=== PATIENT | female | born 1990 | race Two or more races ===

== ENCOUNTER 2021-12-15 17:55 | Emergency (ER) | payer SELFPAY ==
[~2021-12-15] VITALS: Ht 157.5 cm; Wt 86.2 kg
[2021-12-15 18:46] VITALS: BP 111/75
== END 2021-12-15 20:16 | disposition home or self-care (01) ==
LOC: ER 17:55
DX: M54.6 Pain in thoracic spine (principal); M54.2 Cervicalgia; M25.531 Pain in right wrist; V43.53XA Car driver injured in collision with pick-up truck in traffic accident, initial encounter; Y93.89 Activity, other specified; Y92.89 Other specified places as the place of occurrence of the external cause; Y99.8 Other external cause status
CPT/HCPCS: 71250; 72125

== ENCOUNTER 2024-02-19 20:22 | Emergency (ER) | payer BC, OTHER ==
[~2024-02-19] VITALS: Ht 157.5 cm; Wt 90.9 kg
[2024-02-19 20:50] VITALS: BP 113/70; PULSE 100; RESP 16; TEMP 97.9; O2SAT 100
[2024-02-19] MEDS: guaiFENesin-DM 100/10mg/5ml SYR PO ONE (21:40)
[2024-02-19] MEDS ORDERED: DEXT1SYP9 GT (21:47)
== END 2024-02-19 21:57 | disposition home or self-care (01) ==
LOC: ER 20:22
DX: J06.9 Acute upper respiratory infection, unspecified (principal)

== ENCOUNTER 2024-06-06 11:17 | Inpatient (IN) | payer BC, MEDICAID ==
[~2024-06-06] VITALS: Ht 157.5 cm; Wt 91.1 kg
[~2024-06-06 11:17] MED LIST: DEXT1SYP9 GT
[2024-06-06 12:25] LABS: Eosinophils # (auto) 0.2 10 ^3/uL (0-0.8); Hematocrit 25.9 % (36.0-46.0); Hemoglobin 7.6 g/dL (12.2-16.2); Monocytes # (auto) 0.5 10 ^3/uL (0-1.3); Nucleated Red Blood Cells % 0.1 %; Red Blood Cells 4.57 10^6/uL (4.0-5.20); White Blood Cell 6.1 10^3/uL (4.4-10.8)
[2024-06-06 12:27] LABS: Basophils # (auto) 0 10 ^3/uL (0-0.2); Basophils % (auto) 0.5 % (0.0-2.0); Lymphocytes # (auto) 1.5 10 ^3/uL (0.4-5.4); Lymphocytes % (auto) 24.6 % (10.0-50.0); Mean Corpuscular Hemoglobin 16.7 pg (28.0-32.0); Mean Corpuscular Hgb Conc. 29.4 g/dL (32.0-36.0); Mean Corpuscular Volume 56.8 fL (80.0-100.0); Monocytes % (auto) 7.7 % (0.0-12.0); Neutrophils # (auto) 3.9 10 ^3/uL (1.6-8.6); Neutrophils % (auto) 64.2 % (37.0-80.0); Platelet Count (auto) 294 10^3/uL (140-450); Red Cell Distribution Width 18.8 % (11.8-14.3)
[2024-06-06 12:37] LABS: Chloride 111 mmol/L (98-107); Potassium 3.9 mmol/L (3.5-5.1); Sodium 140 mmol/L (136-145)
[2024-06-06 12:38] LABS: Anion Gap 6 (5-15); Calcium 9.1 mg/dL (8.7-10.4); Carbon Dioxide 23 mmol/L (20-30)
[2024-06-06 12:43] LABS: BUN/Creatinine Ratio 14.5 (10.0-20.0); Blood Urea Nitrogen 12 mg/dL (9-23); Glucose 125 mg/dL (74-106)
[2024-06-06 12:57] LABS: INR 1.02 (0.9-1.15); Prothrombin Time 10.8 sec (9.3-11.8)
[2024-06-06 13:36] LABS: Platelet Estimate Adequate
[2024-06-06 13:38] LABS: Hypochromia Marked; Ovalocytes MANY
[2024-06-06] MEDS ORDERED: HYDROcodone-ACET 5/325MG TAB PO PRN (15:30)
[2024-06-06] MEDS ORDERED: ONDANSETRON HCL 4 MG/2 ML VIAL IV PRN (15:30)
[2024-06-06] MEDS ORDERED: DOCUSATE SOD 100 MG CAP PO PRN (15:30)
[2024-06-06] MEDS ORDERED: ACETAMINOPHEN 325 MG TAB PO PRN (15:30)
[2024-06-06 15:46] LABS: Urine Bacteria None Seen /hpf (None Seen)
[2024-06-06] MEDS ORDERED: MORPHINE SULFATE INJ 2 MG/ml SYRG IV PRN (16:00)
[2024-06-06] MEDS ORDERED: NITROGLYCERIN 0.4 MG SL TAB SL PRN (16:00)
[2024-06-06 16:10] LABS: Urine Amorphous Crystal FEW /hpf (None Seen); Urine Blood Negative /uL (Negative); Urine Clarity Turbid (Clear); Urine Color Light-Yellow (Yellow); Urine Protein, UAD Negative (Negative); Urine Specific Gravity 1.023 (1.001-1.035); Urine Urobilinogen Normal (Negative); Urine WBC 1 /hpf (0 - 5); Urine pH 7.5 (5.0-9.0)
[2024-06-06 21:22] VITALS: PULSE 87; RESP 16; O2SAT 100
[2024-06-06 22:00] VITALS: BP 99/59; PULSE 98; RESP 17; TEMP 98.3; O2SAT 99
[2024-06-06] MEDS ORDERED: CALC500C3 PO (23:11)
[2024-06-07 05:00] VITALS: BP 100/58; PULSE 102; RESP 17; TEMP 98.1; O2SAT 99
[2024-06-07 07:04] LABS: Basophils # (auto) 0 10 ^3/uL (0-0.2); Basophils % (auto) 0.5 % (0.0-2.0); Hematocrit 23.6 % (36.0-46.0); Mean Corpuscular Hemoglobin 16.8 pg (28.0-32.0); Neutrophils # (auto) 4.5 10 ^3/uL (1.6-8.6); Nucleated Red Blood Cells % 0.1 %; Red Blood Cells 4.15 10^6/uL (4.0-5.20); White Blood Cell 7.4 10^3/uL (4.4-10.8)
[2024-06-07 07:06] LABS: Eosinophils # (auto) 0.3 10 ^3/uL (0-0.8); Eosinophils % (auto) 3.5 % (0.0-7.0); Lymphocytes % (auto) 27.4 % (10.0-50.0); Mean Corpuscular Hgb Conc. 29.4 g/dL (32.0-36.0); Mean Corpuscular Volume 56.9 fL (80.0-100.0); Monocytes # (auto) 0.6 10 ^3/uL (0-1.3); Neutrophils % (auto) 60.6 % (37.0-80.0); Platelet Count (auto) 264 10^3/uL (140-450); Red Cell Distribution Width 18.7 % (11.8-14.3)
[2024-06-07 07:32] LABS: Alanine Aminotransferase 59 U/L (7-40); Albumin 3.4 g/dL (3.2-4.8); Alkaline Phosphatase 121 U/L (46-116); Anion Gap 6 (5-15); Aspartate Aminotransferase 34 U/L (13-40); BUN/Creatinine Ratio 21.2 (10.0-20.0); Bilirubin, Total 0.4 mg/dL (0.2-1.0); Blood Urea Nitrogen 14 mg/dL (9-23); Calcium 8.7 mg/dL (8.7-10.4); Carbon Dioxide 20 mmol/L (20-30); Chloride 112 mmol/L (98-107); Glucose 100 mg/dL (74-106); Potassium 4.1 mmol/L (3.5-5.1); Sodium 138 mmol/L (136-145)
[2024-06-07 07:33] LABS: Total Protein 5.9 g/dL (5.7-8.2)
[2024-06-07 07:45] LABS: Hypochromia Moderate; Platelet Estimate Adequate
[2024-06-07 07:46] LABS: Ovalocytes FEW; Stomatocytes Few
[2024-06-07 08:47] LABS: Triglycerides 73 mg/dL (< 150)
[2024-06-07 08:48] LABS: LDL Cholesterol 85 mg/dL (< 100)
[2024-06-07 08:49] LABS: Cholesterol 133 mg/dL (< 200); HDL Cholesterol 39 mg/dL (40-59)
[2024-06-07 09:00] VITALS: BP 100/59; PULSE 86; RESP 24; TEMP 98.5; O2SAT 99
[2024-06-07] MEDS: PANTOPRAZOLE 40 MG TAB PO ONE (12:33)
[2024-06-07 13:00] VITALS: BP_SYST 119; BP_SYST 81; BP_DIAS 34; BP_DIAS 67; PULSE 117; PULSE 75; RESP 18; RESP 24; TEMP 97.7; TEMP 98.1; O2SAT 98
[2024-06-07 13:14] LABS: Amphetamine Screen, Urine Neg (NEGATIVE); Barbiturate Scree,Urine Neg (NEGATIVE); Benzodiazephine Screen, Urine Neg (NEGATIVE)
[2024-06-07 13:15] LABS: Cannabinoid Screen, Urine Neg (NEGATIVE); Cocaine Screen, Urine Neg (NEGATIVE); Opiate Scree,Urine Neg (NEGATIVE); Phencyclidine Screen, Urine Neg (NEGATIVE)
[2024-06-07 13:23] LABS: Hematocrit 29.1 % (36.0-46.0); Hemoglobin 8.3 g/dL (12.2-16.2)
[2024-06-07 13:42] LABS: % Iron Saturation 5.6 % (15-50)
[2024-06-07] MEDS: PANTOPRAZOLE 40 MG/10 ML VIAL INJ IV ONE (14:00)
[2024-06-07 17:00] VITALS: BP 114/63; PULSE 106; RESP 20; TEMP 98.7; O2SAT 98
[2024-06-07 20:00] VITALS: PULSE 100
[2024-06-07 21:00] VITALS: BP 99/62; PULSE 96; RESP 18; TEMP 98.4; O2SAT 100
[2024-06-07 22:04] LABS: Basophils # (auto) 0 10 ^3/uL (0-0.2); Basophils % (auto) 0.4 % (0.0-2.0); Eosinophils # (auto) 0.2 10 ^3/uL (0-0.8); Eosinophils % (auto) 2.1 % (0.0-7.0); Hematocrit 25.5 % (36.0-46.0); Hemoglobin 7.3 g/dL (12.2-16.2); Lymphocytes # (auto) 3.2 10 ^3/uL (0.4-5.4); Lymphocytes % (auto) 31.7 % (10.0-50.0); Mean Corpuscular Hemoglobin 16.6 pg (28.0-32.0); Mean Corpuscular Hgb Conc. 28.5 g/dL (32.0-36.0); Mean Corpuscular Volume 58.2 fL (80.0-100.0); Monocytes # (auto) 0.7 10 ^3/uL (0-1.3); Monocytes % (auto) 7.4 % (0.0-12.0); Neutrophils # (auto) 5.9 10 ^3/uL (1.6-8.6); Neutrophils % (auto) 58.4 % (37.0-80.0); Nucleated Red Blood Cells % 0.1 %; Platelet Count (auto) 309 10^3/uL (140-450); Red Blood Cells 4.38 10^6/uL (4.0-5.20); Red Cell Distribution Width 18.8 % (11.8-14.3); White Blood Cell 10.1 10^3/uL (4.4-10.8)
[2024-06-08] VITALS (10 sets, daily range): BP systolic 92–111; BP diastolic 49–65; PULSE 71–100; RESP 15–18; TEMP 98.1–98.5; O2SAT 92–100
[2024-06-08] MEDS: SUCRALFATE 1 GM/10 ML ORAL SUSP PO SCH (05:44)
[2024-06-08] MEDS ORDERED: PANTOPRAZOLE 40 MG TAB PO SCH (06:00)
[2024-06-08 07:22] LABS: Basophils # (auto) 0 10 ^3/uL (0-0.2); Basophils % (auto) 0.5 % (0.0-2.0); Eosinophils # (auto) 0.3 10 ^3/uL (0-0.8); Eosinophils % (auto) 3.5 % (0.0-7.0); Hematocrit 22.4 % (36.0-46.0); Lymphocytes # (auto) 2.6 10 ^3/uL (0.4-5.4); Lymphocytes % (auto) 34.1 % (10.0-50.0); Mean Corpuscular Hgb Conc. 29.6 g/dL (32.0-36.0); Mean Corpuscular Volume 57.3 fL (80.0-100.0); Monocytes # (auto) 0.6 10 ^3/uL (0-1.3); Monocytes % (auto) 8.3 % (0.0-12.0); Neutrophils # (auto) 4.1 10 ^3/uL (1.6-8.6); Neutrophils % (auto) 53.6 % (37.0-80.0); Nucleated Red Blood Cells % 0.1 %; Platelet Count (auto) 259 10^3/uL (140-450); Red Blood Cells 3.91 10^6/uL (4.0-5.20); Red Cell Distribution Width 18.5 % (11.8-14.3); White Blood Cell 7.6 10^3/uL (4.4-10.8)
[2024-06-08 07:27] LABS: Hemoglobin 6.6 g/dL (12.2-16.2)
[2024-06-08 08:30] LABS: Hypochromia Moderate; Platelet Estimate Adequate
[2024-06-08 08:31] LABS: Ovalocytes FEW
[2024-06-08] MEDS ORDERED: PANT40TA2 PO (16:47)
[2024-06-08] MEDS ORDERED: FER325T PO (16:47)
[2024-06-08] MEDS: PANTOPRAZOLE 40 MG/10 ML VIAL INJ IV SCH (17:11)
[2024-06-08 18:18] LABS: Basophils # (auto) 0 10 ^3/uL (0-0.2); Eosinophils # (auto) 0.2 10 ^3/uL (0-0.8); Eosinophils % (auto) 2.5 % (0.0-7.0); Hemoglobin 9.5 g/dL (12.2-16.2); Lymphocytes # (auto) 2.3 10 ^3/uL (0.4-5.4); Mean Corpuscular Hemoglobin 18.5 pg (28.0-32.0); Monocytes # (auto) 0.6 10 ^3/uL (0-1.3)
[2024-06-08 18:20] LABS: Basophils % (auto) 0.5 % (0.0-2.0); Hematocrit 32.3 % (36.0-46.0); Lymphocytes % (auto) 26.6 % (10.0-50.0); Mean Corpuscular Hgb Conc. 29.4 g/dL (32.0-36.0); Monocytes % (auto) 7.1 % (0.0-12.0); Neutrophils # (auto) 5.4 10 ^3/uL (1.6-8.6); Neutrophils % (auto) 63.3 % (37.0-80.0); Nucleated Red Blood Cells % 0.2 %; Platelet Count (auto) 267 10^3/uL (140-450); Red Blood Cells 5.13 10^6/uL (4.0-5.20); White Blood Cell 8.6 10^3/uL (4.4-10.8)
[2024-06-08 18:21] LABS: Red Cell Distribution Width 23.3 % (11.8-14.3)
== END 2024-06-08 19:02 | disposition home or self-care (01) | DRG 812 ==
LOC: ER 11:17 → TELE 15:58 → TELE-WESTW 22:05
PROVIDERS: ADMIT Internal Medicine Geriatric Medicine; ATTEND Internal Medicine Geriatric Medicine
PROC: 30233N1 Transfusion of Nonautologous Red Blood Cells into Peripheral Vein, Percutaneous Approach (ICD-10-PCS; principal; 2024-06-08)
DX: D50.9 Iron deficiency anemia, unspecified (principal); R13.10 Dysphagia, unspecified; K44.9 Diaphragmatic hernia without obstruction or gangrene; K57.30 Diverticulosis of large intestine without perforation or abscess without bleeding; K80.20 Calculus of gallbladder without cholecystitis without obstruction; E66.01 Morbid (severe) obesity due to excess calories; Z68.36 Body mass index [BMI] 36.0-36.9, adult; Z79.899 Other long term (current) drug therapy
CPT/HCPCS: 36415; 71250; 74176; 76705; 80048; 80053; 80061; 80307; 81001; 81025; 82270; 82306; 82607; 82746; 82962; 83036; 83540; 83550; 83735; 84443; 85014; 85018; 85025; 85610; 86850; 86900; 86901; 86920; G0378; J2470

== ENCOUNTER 2024-09-03 20:13 | Emergency (ER) | payer BC, MEDICAID ==
[~2024-09-03] VITALS: Ht 157.5 cm; Wt 86.5 kg
[~2024-09-03 20:13] MED LIST changes: +CALC500C3 PO; +FER325T PO; +PANT40TA2 PO
--- NOTE | 2024-09-03 21:16 | DVH ---
EXAM: XY CHEST TWO VIEWS ROUTINE CLINICAL HISTORY: cough sob TECHNIQUE: Frontal and lateral views of the chest WID: COMPARISON: None FINDINGS: Lines and tubes: None Chest: The heart size and pulmonary vasculature is within normal limits. No pleural effusion, pneumothorax, or consolidation. The osseous structures are grossly intact. Small hiatal hernia. IMPRESSION: 1. No acute cardiopulmonary abnormality. 2. Small hiatal hernia.
[2024-09-03] MEDS ORDERED: AZIT-43 PO (23:41)
[2024-09-03] MEDS ORDERED: METH4PAK PO (23:41)
--- NOTE | 2024-09-03 23:42 | ED.PDOC ---
SOB-HPI HPI Comments 34 year old female patient presents to the ED chief complaint cough x5 days. Patient reports subjective fevers at home, productive cough yellow mucus. She reports no other related symptoms. Denies chest pain, shortness of breath, or difficulty breathing. Chief Complaint: Cough Time Seen by MD: 20:51 Primary Care Provider: NONE Reviewed notes: Nurses Notes, Medications, Allergies Information Source: Patient Mode of Arrival: Ambulatory Past Medical History PAST MEDICAL HISTORY: Anemia Surgical History: Denies all surgeries PARACHUTE MENDER History: Denies all PARACHUTE MENDER Hx Family History Family History: Reviewed,noncontributory to illness Social History Smoker: Non-Smoker Alcohol: Denies ETOH Use Drugs: Denies Drug Use Lives In: Home Constitutional: reports: fever; denies: chills, diaphoresis, fatigue, malaise, sweats, weakness, others EENTM: denies: blurred vision, double vision, ear bleeding, ear discharge, ear drainage, ear pain, ear ringing, eye pain, eye redness, hearing loss, mouth pain, mouth swelling, nasal discharge, nose bleeding, nose congestion, nose pain, photophobia, tearing, throat pain, throat swelling, voice changes, others Respiratory: reports: cough; denies: hemoptysis, orthopnea, SOB at rest, shortness of breath, SOB with excertion, stridor, wheezing, others Cardiovascular: denies: chest pain, dizzy spells, diaphoresis, Dyspnea on exertion, edema, irregular heart beat, left arm pain, lightheadedness, palpitations, PND, syncope, others Gastrointestinal: denies: abdomen distended, abdominal pain, blood streaked bowels, constipated, diarrhea, dysphagia, difficulty swallowing, hematemesis, melena, nausea, poor appetite, poor fluid intake, rectal bleeding, rectal pain, vomiting, others Genitourinary: denies: abnormal vagina bleeding, burning, dyspareunia, dysuria, flank pain, frequency, hematuria, incontinence, pain, , vagina discharge, urgency, others Neurological: denies: dizziness, fainting, headache, left sided numbness, left sided weakness, numbness, paresthesia, pre-existing deficit, right sided numbness, right sided weakness, seizure, speech problems, tingling, tremors, weakness, others Musculoskeletal: denies: back pain, gout, joint pain, joint swelling, muscle pain, muscle stiffness, neck pain, others Integumetry: denies: bruises, change in color, change in hair/nails, dryness, laceration, lesions, lumps, rash, wounds, others Allergic/Immunocompromised: denies: Difficulty Healing, Frequent Infections, Hives, Itching, others Hematologic/Lymphatic: denies: anemia, blood clots, easy bleeding, easy bruising, swollen glands, others Endocrine: denies: excessive hunger, excessive sweating, excessive thirst, excessive urination, flushing, intolerance to cold, intolerance to heat, unexplained weight gain, unexplained weight loss, others Psychiatric: denies: anxiety, bipolar disorder, depression, hopeless, panic disorder, schizophrenia, sleepless, suicidal, others Physical Exam General Appearance: No Apparent Distress, Normal HEENT: Normal ENT Inspection, Pharynx Normal, TMs Normal Neck: Full Range of Motion, Non-Tender Respiratory: Chest Non-Tender, Expiration, No Accessory Muscle Use, No Respiratory Distress, Rhonchi Cardiovascular: No Murmur, Normal Peripheral Pulses, Regular Rate/Rhythm Breast Exam: Deferred Gastrointestinal: Non Tender, Soft Genitalia: Deferred Pelvic: Deferred Rectal: Deferred Extremities: No calf tenderness, Normal range of motion Musculoskeletal : Apperance: Normal Neurologic: Alert, granulator operator II-XII nml as Tested, No Motor Deficits, Normal Affect, Normal Mood, No Sensory Deficits Cerebellar Function: Normal Reflexes: Normal Skin: Dry, Normal Color, Warm Lymphatic: No Adenopathy Was a procedure done? Was a procedure done?: No Differential Dx Differential Diagnosis: Pneumonia X-Ray, Labs, Meds, VS Vital Signs Date Time Temp Pulse Resp B/P (MAP) Pulse Ox O2 Delivery O2 Flow Rate FiO2 09/03/24 20:24 98.1 100 16 128/69 (88) 100 X-Ray, Labs, Meds, VS Comment Chest x-ray shows no acute cardiopulmonary findings. We will prescribing hold azithromycin advised to start in 2 days if no improvement. We will also send Tessalon Perles for the cough. Advised to rest increase p.o. fluids with electrolytes. Advised to follow up with her PCP in 2- 3 days for continued symptoms. ED return precautions given. Patient agrees with discharge plan and clear. Time of 1ST Reevaluation: 23:39 Reevaluation 1ST: Unchanged Patient Education/Counseling: Diagnosis, Treatment, Prognosis, Need For Follow Up Family Education/Counseling: No Family Present Departure 1 Departure Time of Disposition: 23:41 Impression: Primary Impression: Cough in adult patient Disposition: 01 HOME / SELF CARE / HOMELESS Condition: Stable e-Prescriptions Methylprednisolone (Medrol Dosepak) 4 Mg Osito 4 MG PO UD for 6 Days, #21 TAB UAD Prov: LUCY BOURGEOIS [facility] 09/03/24 Azithromycin (Azithromycin) 250 Mg Tab 250 MG PO DAILY MDD 500 for 5 Days, #6 TAB 0 Refills 2 TABLETS ORALLY ON DAY ONE, THEN 1 TABLET ORALLY DAILY FOR 4 DAYS Prov: LUCY BOURGEOIS [facility] 09/03/24 Discharged With: Self Critical Care Note Critical Care Time?: No Stability Stability form required: No Heart Score Heart Score: Heart Score Response (Comments) Value History N/A 0 EKG N/A 0 Age <45 0 Risk Factors N/A 0 Troponin N/A 0 Total 0 LUCY BOURGEOIS [facility] Sep 03, 2024 23:42
[2024-09-04 00:13] VITALS: BP 100/62; PULSE 91; RESP 16; TEMP 98.8; O2SAT 99
== END 2024-09-04 00:15 | disposition home or self-care (01) ==
LOC: ER 20:13
DX: R05.9 Cough, unspecified (principal); R50.9 Fever, unspecified; D64.9 Anemia, unspecified
CPT/HCPCS: 71046

== ENCOUNTER 2025-01-01 03:12 | Inpatient (IN) | payer BC, MEDICAID ==
[2025-01-01] VITALS (12 sets, daily range): BP systolic 91–111; BP diastolic 55–75; PULSE 72–92; RESP 12–18; TEMP 97.1–98.4; O2SAT 95–100
[~2025-01-01] VITALS: Ht 157.5 cm; Wt 86.1 kg
[~2025-01-01 03:12] MED LIST changes: +AZIT-43 PO; +METH4PAK PO
--- NOTE | 2025-01-01 03:39 | ED.PDOC ---
History of Present Illness HPI Comments Pt presents to ED d/t dizziness. Pt states she awoke at 0205, and felt dizzy. Admits to N/V denies diarrhea. PMH of anemia, blood transfusion comleted six months ago. BP 113/66, HR 99. Pt A&O x4 patient denies difficulty breathing, chest pain, shortness of breath, or heavy menses. Chief Complaint: Dizziness Time Seen by MD: 03:20 Primary Care Provider: NONE Reviewed Notes: Nurses Notes, Medications, Allergies Allergies: Coded Allergies: NO KNOWN ALLERGIES (Unverified , 02/19/24) Home Meds Active Scripts Methylprednisolone (Medrol Dosepak) 4 Mg Osito, 4 MG PO UD for 6 Days, #21 TAB UAD Prov:LUCY BOURGEOIS [facility] 09/03/24 Azithromycin (Azithromycin) 250 Mg Tab, 250 MG PO DAILY MDD 500 for 5 Days, #6 TAB 0 Refills 2 TABLETS ORALLY ON DAY ONE, THEN 1 TABLET ORALLY DAILY FOR 4 DAYS Prov:LUCY BOURGEOIS [facility] 09/03/24 Pantoprazole Sodium Sesquihydr (Protonix) 40 Mg Tab, 40 MG PO DAILY for 30 Days, #30 TAB 3 Refills Prov:VARGAS SALCEDO RESIDENT 06/08/24 Ferrous Sulfate (FERROUS SULFATE) 325 Mg Tb, 325 MG PO DAILY for 30 Days, #30 TAB 3 Refills Prov:VARGAS SALCEDO RESIDENT 06/08/24 Dextromethorphan-Guaifenesin (Robitussin-Dm) 10 Ml Sr, 20 ML GT Q4HPRN PRN, #120 ML Prov:MACIE LAWRENCE PAC 02/19/24 Reported Medications Calcium Carbonate (Tums) 500 Mg Chw, 500 MG PO PRN, TAB.CHEW 06/06/24 Information Source: Patient Mode of Arrival: Ambulatory Past Medical History PAST MEDICAL HISTORY: Anemia Surgical History: Denies all surgeries MEDICAL RECEPTIONIST History: Denies all MEDICAL RECEPTIONIST Hx Family History Family History: Reviewed,noncontributory to illness Social History Smoker: Non-Smoker Alcohol: Denies ETOH Use Drugs: Denies Drug Use Lives In: Home Constitutional: denies: chills, diaphoresis, fatigue, fever, malaise, sweats, weakness, others EENTM: denies: blurred vision, double vision, ear bleeding, ear discharge, ear drainage, ear pain, ear ringing, eye pain, eye redness, hearing loss, mouth pain, mouth swelling, nasal discharge, nose bleeding, nose congestion, nose pain, photophobia, tearing, throat pain, throat swelling, voice changes, others Respiratory: denies: cough, hemoptysis, orthopnea, SOB at rest, shortness of breath, SOB with excertion, stridor, wheezing, others Cardiovascular: reports: dizzy spells; denies: chest pain, diaphoresis, Dyspnea on exertion, edema, irregular heart beat, left arm pain, lightheadedness, palpitations, PND, syncope, others Gastrointestinal: reports: nausea, vomiting; denies: abdomen distended, abdominal pain, blood streaked bowels, constipated, diarrhea, dysphagia, difficulty swallowing, hematemesis, melena, poor appetite, poor fluid intake, rectal bleeding, rectal pain, others Genitourinary: denies: abnormal vagina bleeding, burning, dyspareunia, dysuria, flank pain, frequency, hematuria, incontinence, pain, , vagina discharge, urgency, others Neurological: denies: dizziness, fainting, headache, left sided numbness, left sided weakness, numbness, paresthesia, pre-existing deficit, right sided numbness, right sided weakness, seizure, speech problems, tingling, tremors, weakness, others Musculoskeletal: denies: back pain, gout, joint pain, joint swelling, muscle pain, muscle stiffness, neck pain, others Integumetry: denies: bruises, change in color, change in hair/nails, dryness, laceration, lesions, lumps, rash, wounds, others Allergic/Immunocompromised: denies: Difficulty Healing, Frequent Infections, Hives, Itching, others Hematologic/Lymphatic: denies: anemia, blood clots, easy bleeding, easy bruising, swollen glands, others Endocrine: denies: excessive hunger, excessive sweating, excessive thirst, excessive urination, flushing, intolerance to cold, intolerance to heat, unexplained weight gain, unexplained weight loss, others Psychiatric: denies: anxiety, bipolar disorder, depression, hopeless, panic disorder, schizophrenia, sleepless, suicidal, others Physical Exam General Appearance: No Apparent Distress, Normal HEENT: Normal ENT Inspection, Pharynx Normal, TMs Normal Neck: Full Range of Motion, Non-Tender Respiratory: Lungs Clear, No Accessory Muscle Use, No Respiratory Distress, Normal Breath Sounds Cardiovascular: No Edema, No JVD, No Murmur, No Gallop, Normal Peripheral Pulses, Regular Rate/Rhythm Breast Exam: Deferred Gastrointestinal: No Organomegaly, Non Tender, No Pulsatile Mass, Normal Bowel Sounds, Soft Genitalia: Deferred Pelvic: Deferred Rectal: Deferred Extremities: Normal capillary refill, Normal inspection, Normal range of motion, Non-tender, No pedal edema Musculoskeletal : Apperance: Normal Neurologic: Alert, ecological technical officer II-XII nml as Tested, No Motor Deficits, Normal Affect, Normal Mood, No Sensory Deficits Cerebellar Function: Normal Reflexes: Normal Skin: Dry, Pallor, Warm Lymphatic: No Adenopathy Was a procedure done? Was a procedure done?: No Differential Dx Considerations may include: Anemia X-Ray, Labs, Meds, VS Vital Signs Date Time Temp Pulse Resp B/P (MAP) Pulse Ox O2 Delivery O2 Flow Rate FiO2 01/01/25 05:03 98.0 91 12 105/57 (73) 95 98.0 01/01/25 05:03 91 12 95 Room Air* 0 21 01/01/25 03:16 98.5 99 16 113/66 (82) 100 98.5 Lab Test 01/01/25 03:48 Range/Units White Blood Count 5.6 4.4-10.8 10^3/uL Red Blood Count 3.58 L 4.0-5.20 10^6/uL Hemoglobin 5.7 *L 12.2-16.2 g/dL Hematocrit 20.1 L 36.0-46.0 % Mean Corpuscular Volume 56.0 L 80.0-100.0 fL Mean Corpuscular Hemoglobin 15.9 L 28.0-32.0 pg Mean Corpuscular Hemoglobin Concent 28.3 L 32.0-36.0 g/dL Red Cell Distribution Width 19.5 H 11.8-14.3 % Platelet Count 274 140-450 10^3/uL Mean Platelet Volume 8.5 6.9-10.8 fL Neutrophils (%) (Auto) 59.0 37.0-80.0 % Lymphocytes (%) (Auto) 29.2 10.0-50.0 % Monocytes (%) (Auto) 7.6 0.0-12.0 % Eosinophils (%) (Auto) 3.6 0.0-7.0 % Basophils (%) (Auto) 0.6 0.0-2.0 % Neutrophils # (Auto) 3.3 1.6-8.6 10 ^3/uL Lymphocytes # (Auto) 1.6 0.4-5.4 10 ^3/uL Monocytes # (Auto) 0.4 0-1.3 10 ^3/uL Eosinophils # (Auto) 0.2 0-0.8 10 ^3/uL Basophils # (Auto) 0 0-0.2 10 ^3/uL Nucleated Red Blood Cells 0.1 % Sodium Level 143 136-145 mmol/L Potassium Level 3.6 3.5-5.1 mmol/L Chloride Level 112 H 98-107 mmol/L Carbon Dioxide Level 24 20-31 mmol/L Anion Gap 7 5-15 Blood Urea Nitrogen 13 9-23 mg/dL Creatinine 0.74 0.550-1.02 mg/dL Glomerular Filtration Rate Calc 109 >90 mL/min BUN/Creatinine Ratio 17.6 10.0-20.0 Serum Glucose 116 H 74-106 mg/dL Calcium Level 8.6 L 8.7-10.4 mg/dL Iron Level 12 L 50-170 ug/dL Total Iron Binding Capacity 404 250-425 ug/dL Percent Iron Saturation 3.0 L 15-50 % Total Bilirubin 0.3 0.2-1.0 mg/dL Aspartate Amino Transferase (AST) 26 13-40 U/L Alanine Aminotransferase (ALT) 31 7-40 U/L Alkaline Phosphatase 109 46-116 U/L Total Protein 6.1 5.7-8.2 g/dL Albumin 3.8 3.2-4.8 g/dL X-Ray, Labs, Meds, VS Comment Patient will be admitted for anemia requiring blood transfusion. PENDING TYPE AND SCREEN, ORDERS PLACED FOR PACKED RED BLOOD CELLS X2. Patient placed for hospitalist. LABS: HEMOGLOBIN 5.7 HEMATOCRIT 20.1 IRON 12 MCV 56 MCH 15.9 MCHC 28.3 RDW 19.5 Time of 1ST Reevaluation: 04:45 Reevaluation 1ST: Unchanged Patient Education/Counseling: Diagnosis, Treatment, Prognosis, Need For Follow Up Family Education/Counseling: No Family Present Departure 1 Departure Time of Disposition: 04:48 Impression: Primary Impression: Symptomatic anemia Disposition: 04 INTERMEDIATE CARE FACILITY Condition: Stable Discharged With: Self Critical Care Note Critical Care Time?: No Stability Stability form required: LUCY Pollack Jan 01, 2025 03:39
[2025-01-01 04:23] LABS: Basophils # (auto) 0 10 ^3/uL (0-0.2); Eosinophils # (auto) 0.2 10 ^3/uL (0-0.8); Hematocrit 20.1 % (36.0-46.0); Lymphocytes # (auto) 1.6 10 ^3/uL (0.4-5.4); Lymphocytes % (auto) 29.2 % (10.0-50.0); Mean Corpuscular Hemoglobin 15.9 pg (28.0-32.0); Monocytes # (auto) 0.4 10 ^3/uL (0-1.3); Neutrophils # (auto) 3.3 10 ^3/uL (1.6-8.6); Nucleated Red Blood Cells % 0.1 %; Red Cell Distribution Width 19.5 % (11.8-14.3)
[2025-01-01 04:25] LABS: Basophils % (auto) 0.6 % (0.0-2.0); Eosinophils % (auto) 3.6 % (0.0-7.0); Mean Corpuscular Hgb Conc. 28.3 g/dL (32.0-36.0); Monocytes % (auto) 7.6 % (0.0-12.0); Platelet Count (auto) 274 10^3/uL (140-450); Red Blood Cells 3.58 10^6/uL (4.0-5.20); White Blood Cell 5.6 10^3/uL (4.4-10.8)
[2025-01-01 04:37] LABS: Hemoglobin 5.7 g/dL (12.2-16.2)
[2025-01-01 04:38] LABS: Alanine Aminotransferase 31 U/L (7-40); Alkaline Phosphatase 109 U/L (46-116); Aspartate Aminotransferase 26 U/L (13-40); BUN/Creatinine Ratio 17.6 (10.0-20.0); Blood Urea Nitrogen 13 mg/dL (9-23); Carbon Dioxide 24 mmol/L (20-31); Total Protein 6.1 g/dL (5.7-8.2)
[2025-01-01 04:39] LABS: Albumin 3.8 g/dL (3.2-4.8); Bilirubin, Total 0.3 mg/dL (0.2-1.0)
[2025-01-01 04:42] LABS: Potassium 3.6 mmol/L (3.5-5.1); Sodium 143 mmol/L (136-145)
[2025-01-01 04:46] LABS: Chloride 112 mmol/L (98-107)
[2025-01-01 04:47] LABS: Calcium 8.6 mg/dL (8.7-10.4); Glucose 116 mg/dL (74-106)
[2025-01-01 04:49] LABS: Anion Gap 7 (5-15)
[2025-01-01] MEDS ORDERED: ACETAMINOPHEN 325 MG TAB PO PRN (05:30)
[2025-01-01] MEDS ORDERED: HYDROcodone-ACET 5/325MG TAB PO PRN (05:30)
--- NOTE | 2025-01-01 06:08 | DVH ---
EXAM: XR Chest, 1 View CLINICAL INDICATION: anemia TECHNIQUE: Frontal view of the chest. COMPARISON: None FINDINGS: LUNGS AND PLEURAL SPACES: Unremarkable. No consolidation. No pneumothorax. HEART: Unremarkable. No cardiomegaly. MEDIASTINUM: Unremarkable. Normal mediastinal contour. BONES/JOINTS: Unremarkable. No acute fracture. OTHER FINDINGS: . None. IMPRESSION: No acute cardiopulmonary process.
[2025-01-01 06:25] LABS: INR 0.97 (0.9-1.15); Partial Thromboplastin Time 24.8 SEC (24.5-34.5); Prothrombin Time 10.3 sec (9.3-11.8)
--- NOTE | 2025-01-01 06:36 | DVHHPRES ---
History of Present Illness Resident Creating Document: IVY PURDY RESIDENT Reason for Visit: Dizziness History of Present Illness Patient is a 34-year-old female with a past medical history significant for severe anemia status post multiple transfusion came to the ED this morning with a chief complaint of dizziness and fatigue. Per patient, she feels tired most of the time. However,for the past 2 days she has been very dizziness, She has vomited blood recently but no melena stool. She mentioned that she is currently in her period and uses about 3 sanitary pads per day. She denied any bleeding dyscrasias and not on any blood thinners. Of note, patient was seen here about 6 months ago for similar symptoms. On that admission, she received multiple transfusions well. Patient was advised to get an EGD, but declined given because insurance and financial reasons. Current hgb on this admission is 5.7 with Hct: 20.1. Past medical history: Delores anemia, hiatal hernia Past surgical history: C- Sections SOCIAL HISTORY: Works as an [employer] WORKER, does not drink does not smoke Family history: noncontributory Medication: None Past Medical History See HPI Review of Systems Constitutional: Yes: Weakness, Malaise; No: Fever, Chills, Sweats, Other Eyes: No: Pain, Vision change, Conjunctivae inflammation, Eyelid inflammation, Other, Redness ENT: No: Ear pain, Ear discharge, Nose pain, Nose discharge, Nose congestion, Mouth pain, Mouth swelling, Throat pain, Throat swelling, Other Respiratory: No: Cough, Dry, Shortness of breath, SOB with excertion, Wheezing, Hemoptysis, Pleuritic Pain, Sputum, Wheezing, Other Cardiovascular: Palpitations; No: Chest Pain, Orthopnea, Paroxysmal Noc. Dyspnea, Edema, Lt Headedness, Other Gastrointestinal: Abdominal Pain Genitourinary: No Dysuria, No Frequency, No Incontinence, No Hematuria, No Retention, No Other Musculoskeletal: No: other, neck pain, shoulder pain, arm pain, back pain, hand pain, leg pain, foot pain Skin: No: Rash, Lesions, Jaundice, Bruising, Other Neurological: No: Weakness, Numbness, Incoordination, Change in speech, Confusion, Seizures, Other Allergies: Coded Allergies: NO KNOWN ALLERGIES (Unverified , 02/19/24) Exam Vital Signs Vital Signs Date Time Temp Pulse Resp B/P (MAP) Pulse Ox O2 Delivery O2 Flow Rate FiO2 01/01/25 05:03 98.0 91 12 105/57 (73) 95 98.0 01/01/25 05:03 Room Air* 0 21 Exam General Appearance: Alert, Oriented X3, Cooperative, No acute distress, VERY PALE HEENT: Atraumatic, PERRLA, EOMI, Mucous membrane pale Respiratory: Clear to auscultation, Normal air movement Cardiovascular: tachycardia, Regular rate, Normal S1, Normal S2, No murmurs, no chest wall tenderness Abdominal: NO distention, no tenderness, bowel sounds present, no scars noted Extremities: No clubbing, No cyanosis, No edema, Normal pulses, No tenderness/swelling Skin: No rashes, No breakdown, No significant lesion Neuro: Normal gait, Normal speech, Strength at 5/5 X4 ext, Normal tone, Sensation intact, Cranial nerves 3-12 NL, Reflexes 2+ Psych/Mental Status: Mental status NL, Mood NL Labs/Xrays Labs Test 01/01/25 03:48 Range/Units White Blood Count 5.6 4.4-10.8 10^3/uL Red Blood Count 3.58 L 4.0-5.20 10^6/uL Hemoglobin 5.7 *L 12.2-16.2 g/dL Hematocrit 20.1 L 36.0-46.0 % Mean Corpuscular Volume 56.0 L 80.0-100.0 fL Mean Corpuscular Hemoglobin 15.9 L 28.0-32.0 pg Mean Corpuscular Hemoglobin Concent 28.3 L 32.0-36.0 g/dL Red Cell Distribution Width 19.5 H 11.8-14.3 % Platelet Count 274 140-450 10^3/uL Mean Platelet Volume 8.5 6.9-10.8 fL Neutrophils (%) (Auto) 59.0 37.0-80.0 % Lymphocytes (%) (Auto) 29.2 10.0-50.0 % Monocytes (%) (Auto) 7.6 0.0-12.0 % Eosinophils (%) (Auto) 3.6 0.0-7.0 % Basophils (%) (Auto) 0.6 0.0-2.0 % Neutrophils # (Auto) 3.3 1.6-8.6 10 ^3/uL Lymphocytes # (Auto) 1.6 0.4-5.4 10 ^3/uL Monocytes # (Auto) 0.4 0-1.3 10 ^3/uL Eosinophils # (Auto) 0.2 0-0.8 10 ^3/uL Basophils # (Auto) 0 0-0.2 10 ^3/uL Nucleated Red Blood Cells 0.1 % Sodium Level 143 136-145 mmol/L Potassium Level 3.6 3.5-5.1 mmol/L Chloride Level 112 H 98-107 mmol/L Carbon Dioxide Level 24 20-31 mmol/L Anion Gap 7 5-15 Blood Urea Nitrogen 13 9-23 mg/dL Creatinine 0.74 0.550-1.02 mg/dL Glomerular Filtration Rate Calc 109 >90 mL/min BUN/Creatinine Ratio 17.6 10.0-20.0 Serum Glucose 116 H 74-106 mg/dL Calcium Level 8.6 L 8.7-10.4 mg/dL Iron Level 12 L 50-170 ug/dL Total Iron Binding Capacity 404 250-425 ug/dL Percent Iron Saturation 3.0 L 15-50 % Total Bilirubin 0.3 0.2-1.0 mg/dL Aspartate Amino Transferase (AST) 26 13-40 U/L Alanine Aminotransferase (ALT) 31 7-40 U/L Alkaline Phosphatase 109 46-116 U/L Total Protein 6.1 5.7-8.2 g/dL Albumin 3.8 3.2-4.8 g/dL Assessment/Plan Assessment/Plan Acute on Chronic iron deficiency anemia --> hgb: 5.7 --> Protonix, carafate -->iron panel noted --> Transfuse 1 unit of PRBC and repeat H/H --> GI consult History of Hiatal hernia --> GI consult morbid obesity with a BMI 36.1 --> counseled on dietary education Plan discussed with: Patient My Orders Orders - IVY PURDY RESIDENT Procedure Category Date Status Time Admit ADMIT 01/01/25 Transmitted 05:28 Code Status CODE 01/01/25 Transmitted 05:28 Regular Diet DIET 01/01/25 Transmitted Breakfast Patient Condition ORDERS 01/01/25 Transmitted 05:28 Beta Hcg, Quantitative LAB 01/01/25 In Process 05:28 PTPTT LAB 01/01/25 In Process 05:28 Chest Xray 1 View XY 01/01/25 Taken 05:28 * Gi Dvh Quality Officer CONS 01/01/25 Transmitted 05:28 Packedcells -Active BBK 01/01/25 Verified Bleeding 06:04 Pulse Ox Cont Per Day RT 01/01/25 Verified 06:04 Hemoglobin & LAB 01/01/25 Verified Hematocrit 06:04 Complete Blood Count LAB 01/01/25 Verified 06:04 Administer Blood LORY 01/01/25 Verified Products 06:04 Date of Service: Jan 01, 2025 Billing Provider: SAVANNAH RENO MD Common Visit Codes: [id number] INP/OBS CARE (HIGH) IVY PURDY RESIDENT Jan 01, 2025 06:36 SAVANNAH RENO MD Jan 01, 2025 18:04
[2025-01-01 08:18] LABS: Urine Bacteria None Seen /hpf (None Seen)
[2025-01-01 08:26] LABS: Urine Blood 2+ /uL (Negative); Urine Clarity Turbid (Clear); Urine Color Colorless (Yellow); Urine Protein, UAD Negative (Negative); Urine Specific Gravity 1.015 (1.001-1.035); Urine Squamous Epithelial Cell FEW /hpf (<5); Urine Urobilinogen Normal (Negative); Urine WBC 2 /HPF (0-5); Urine pH 7.5 (5.0-9.0)
[2025-01-01] MEDS: PANTOPRAZOLE 40 MG/10 ML VIAL INJ IV SCH (10:55)
--- NOTE | 2025-01-01 12:06 | DVHINCON2 ---
GI Consult Consult Note GI consult note Date of Consultation: 01/01/2025 Chief Complaint: Severe anemia Referring Physician: Dr. Mireles H&P: 34-year-old female with PMH of severe anemia, presented to ER with complains of dizziness and fatigue Patient denies abdominal pain. No nausea or vomiting. Denies hematemesis. Per chart patient does admit that she threw up blood few days ago. No melena. No red blood in stool. Patient has history of GERD SP E[place] last [place] [facility] [place] no colonoscopy in past Patient diagnosed with anemia nine years ago during her 1st . Has seen Dr. Mederos in the past and recommended iron infusions Patient admits to having menstrual cycle for three days not to heavy per patient At this time patient is taking iron supplements twice a day Denies blood thinners. No NSAIDs per patient Past Medical History: Severe anemia, hiatal hernia Past Surgical History: C-sections Social History: NO smoking, drinking ETOH and use of illegal drugs. Family History: Noncontributory Review of Systems: Constitutional: no fever, chill, weight loss HEENT: no eye pain, no hearing loss, no oral lesion, no scleral icterus Heart: no chest pain, no chest pressure Lung: no cough, no dyspnea with exertion Abdomen: see HPI Physical exam: General: NAD, AAOX3 Chest: lung keane clear to auscultation Heart: RRR, no murmur Abdomen: non-distended, no tenderness to palpation, +BS Labs: Labs Test 01/01/25 08:05 01/01/25 03:48 Range/Units Urine Color Colorless Yellow Urine Clarity Turbid H Clear Urine pH 7.5 5.0-9.0 Urine Specific [place] 1.015 1.001-1.035 Urine Protein Negative Negative Urine Ketones Negative Negative Urine Blood 2+ H Negative /uL Urine Nitrite Negative Negative Urine Bilirubin Negative Negative Urine Urobilinogen Normal Negative mg/dL Urine Leukocyte Esterase Trace Negative /uL Urine RBC 19 0 - 4 /hpf Urine Microscopic WBC 2 0-5 /HPF Urine Squamous Epithelial Cells Few <5 /hpf Urine Bacteria None seen None Seen /hpf Urine Glucose Normal Normal mg/dL White Blood Count 5.6 4.4-10.8 10^3/uL Red Blood Count 3.58 L 4.0-5.20 10^6/uL Hemoglobin 5.7 *L 12.2-16.2 g/dL Hematocrit 20.1 L 36.0-46.0 % Mean Corpuscular Volume 56.0 L 80.0-100.0 fL Mean Corpuscular Hemoglobin 15.9 L 28.0-32.0 pg Mean Corpuscular Hemoglobin Concent 28.3 L 32.0-36.0 g/dL Red Cell Distribution Width 19.5 H 11.8-14.3 % Platelet Count 274 140-450 10^3/uL Mean Platelet Volume 8.5 6.9-10.8 fL Neutrophils (%) (Auto) 59.0 37.0-80.0 % Lymphocytes (%) (Auto) 29.2 10.0-50.0 % Monocytes (%) (Auto) 7.6 0.0-12.0 % Eosinophils (%) (Auto) 3.6 0.0-7.0 % Basophils (%) (Auto) 0.6 0.0-2.0 % Neutrophils # (Auto) 3.3 1.6-8.6 10 ^3/uL Lymphocytes # (Auto) 1.6 0.4-5.4 10 ^3/uL Monocytes # (Auto) 0.4 0-1.3 10 ^3/uL Eosinophils # (Auto) 0.2 0-0.8 10 ^3/uL Basophils # (Auto) 0 0-0.2 10 ^3/uL Nucleated Red Blood Cells 0.1 % Prothrombin Time 10.3 9.3-11.8 sec Prothrombin Time INR 0.97 0.9-1.15 Activated Partial Thromboplast Time 24.8 24.5-34.5 SEC Sodium Level 143 136-145 mmol/L Potassium Level 3.6 3.5-5.1 mmol/L Chloride Level 112 H 98-107 mmol/L Carbon Dioxide Level 24 20-31 mmol/L Anion Gap 7 5-15 Blood Urea Nitrogen 13 9-23 mg/dL Creatinine 0.74 0.550-1.02 mg/dL Glomerular Filtration Rate Calc 109 >90 mL/min BUN/Creatinine Ratio 17.6 10.0-20.0 Serum Glucose 116 H 74-106 mg/dL Calcium Level 8.6 L 8.7-10.4 mg/dL Iron Level 12 L 50-170 ug/dL Total Iron Binding Capacity 404 250-425 ug/dL Percent Iron Saturation 3.0 L 15-50 % Ferritin 1.4 L 10-291 ng/mL Total Bilirubin 0.3 0.2-1.0 mg/dL Aspartate Amino Transferase (AST) 26 13-40 U/L Alanine Aminotransferase (ALT) 31 7-40 U/L Alkaline Phosphatase 109 46-116 U/L Total Protein 6.1 5.7-8.2 g/dL Albumin 3.8 3.2-4.8 g/dL Beta HCG, Quantitative 0.7 L 1.5-4.2 mIU/mL Imaging: CT abdomen pelvis 06/08/2024 IMPRESSION: 1. Moderate hiatal hernia. 2. Scattered colonic diverticula without adjacent inflammatory changes to suggest diverticulitis. 3. Cholelithiasis. 4. No evidence of acute disease in the chest. 5. Nonacute findings as detailed above. Abdominal ultrasound 06/08/2024 IMPRESSION: 1. Cholelithiasis without sonographic evidence of acute cholecystitis. Assessment: Severe anemia Hiatal hernia History of GERD Plan: Discussed with Dr. Calderon Stool occult for blood pending Monitor labs, transfuse if hemoglobin less than seven Protonix Discussed possible GI procedures if needed, patient denies EGD and colonoscopy at this time We will continue to monitor the patient Thank you for this consult Date of Service: Jan 01, 2025 Billing Provider: CHRIS SANTAMARIA Common Visit Codes: CONSULT ONLY Consultation Codes: [id number] CONSULT <60MIN CHRIS SANTAMARIA Jan 01, 2025 12:06
--- NOTE | 2025-01-01 12:12 | DVHPN2 ---
Subjective Patient reports having severe right frontal lobe headache as well as blurry vision Reviewed: Care Plan, H&P, Labs, Medications Changes from previous H/P or p: No Changes General: Per HPI Eyes: No Pain, No Vision change, No Conjunctivae inflammation, No Eyelid inflammation, No Other, No Redness ENT: No Ear pain, No Ear discharge, No Nose pain, No Nose discharge, No Nose congestion, No Mouth pain, No Mouth swelling, No Throat pain, No Throat swelling, No Other Cardiovascular: No Chest Pain; Palpitations; No Orthopnea, No Paroxysmal Noc. Dyspnea, No Edema, No Lt Headedness, No Other Respiratory: No Cough, No Dry, No Shortness of breath, No SOB with excertion, No Wheezing, No Hemoptysis, No Pleuritic Pain, No Sputum, No Other Gastrointestinal: Abdominal Pain Genitourinary: No Dysuria, No Frequency, No Incontinence, No Hematuria, No Retention, No Other Musculoskeletal: No other, No neck pain, No shoulder pain, No arm pain, No back pain, No hand pain, No leg pain, No foot pain Skin: No Rash, No Lesions, No Jaundice, No Bruising, No Other Objective Vitals Vital Signs Date Time Temp Pulse Resp B/P (MAP) Pulse Ox O2 Delivery O2 Flow Rate FiO2 01/01/25 12:05 97.8 77 13 102/70 97.8 01/01/25 08:25 98 01/01/25 05:03 Room Air* 0 21 General Appearance: Alert, Oriented X3, mild distress HEENT: Atraumatic, PERRLA Lungs: Clear to auscultation, Normal air movement Cardiovascular: Normal S1, Normal S2 Abdomen: Normal bowel sounds, Soft, No tenderness, No hepatospenomegaly Musculoskeletal: Normal sensory function, Normal motor function Extremities: No clubbing, No cyanosis, No edema, Normal pulses, No tenderness/swelling Neuro: Normal gait, Normal speech Skin: Dry, Intact Psych/Mental Status: Mental status NL, Mood NL Medications Current Medications Medications Dose Ordered Sig/Chelsey Route Start Time Stop Time Status Last Admin Dose Admin Acetaminophen 650 mg Q6HP PRN PO 01/01/25 05:30 Acetaminophen/ Hydrocodone Bitart 1 tab Q4HP PRN PO 01/01/25 05:30 Pantoprazole Sodium 40 mg BID IV 01/01/25 10:00 01/01/25 10:55 40 MG Iron Sucrose 110 ml @ 110 mls/hr DAILY@1200 IV 01/01/25 12:00 01/05/25 12:59 Laboratory Results Laboratory Tests 01/01/25 03:48 Chemistry Test 01/01/25 03:48 Albumin 3.8 g/dL (3.2-4.8) Calcium Level 8.6 mg/dL (8.7-10.4) L Total Protein 6.1 g/dL (5.7-8.2) Coagulation Test 01/01/25 03:48 Prothrombin Time 10.3 sec (9.3-11.8) Prothrombin Time INR 0.97 (0.9-1.15) Activated Partial Thromboplast Time 24.8 SEC (24.5-34.5) LFT Test 01/01/25 03:48 Alanine Aminotransferase (ALT) 31 U/L (7-40) Alkaline Phosphatase 109 U/L (46-116) Aspartate Amino Transferase (AST) 26 U/L (13-40) Total Bilirubin 0.3 mg/dL (0.2-1.0) Urinalysis Test 01/01/25 08:05 Urine Color Colorless (Yellow) Urine Clarity Turbid (Clear) H Urine pH 7.5 (5.0-9.0) Urine Specific [place] 1.015 (1.001-1.035) Urine Protein Negative (Negative) Urine Ketones Negative (Negative) Urine Blood 2+ /uL (Negative) H Urine Nitrite Negative (Negative) Urine Bilirubin Negative (Negative) Urine Urobilinogen Normal mg/dL (Negative) Urine Leukocyte Esterase Trace /uL (Negative) Urine RBC 19 /hpf (0 - 4) Urine Microscopic WBC 2 /HPF (0-5) Urine Squamous Epithelial Cells Few /hpf (<5) Urine Bacteria None seen /hpf (None Seen) Urine Glucose Normal mg/dL (Normal) Labs and/or images reviewed: Labs reviewed by me, Image(s) reviewed by me Assessment/Plan Assessment/Plan Impression: -symptomatic iron-deficiency anemia -obesity -severe headache Plan: -CT scan of the head -PRBC transfusion x2 -check haptoglobin, direct, indirect Dimitrios test, LDH, reticulocyte count -H&H in the morning -pain management -long discussion made with patient was medical history. She states having a history of iron-deficiency anemia and was following Hematology as an outpatient. She reports currently taking iron supplements, in addition to taking iron infusions in the past. She denies having any melena stools, irregular heavy menses, or hematemesis Total time spent with patient discussing and formulating plan of care: 35 minutes. This medical document was created using an electronic medical record system with [employer] dictation system. Although this document has been carefully reviewed, there may still be some phonetic and typographical errors. These areas are purely typographical due to imperfections of the software programs, and do not reflect any compromise in the patient's medical care. Plan discussed with: Patient, Other (RN) My Orders Orders - SAMAN BELTRAN NP Procedure Category Date Status Time Direct Dimitrios BBK 01/01/25 Verified 12:03 Indirect Dimitrios Test BBK 01/01/25 Verified 12:03 Lactate Dehydrogenase LAB 01/01/25 Verified 12:03 Haptoglobin LAB 01/01/25 Verified 12:03 Reticulocyte Count LAB 01/01/25 Verified 12:03 Hemoglobin & LAB 01/02/25 Verified Hematocrit 04:00 Date of Service: Jan 01, 2025 Billing Provider: SAMAN BELTRAN NP Common Visit Codes: [id number] INP/OBS CARE(HIGH) SAMAN BELTRAN NP Jan 01, 2025 12:12
[2025-01-01] MEDS: IRON SUCROSE COMPLEX 110 ML IV SCH (12:26)
--- NOTE | 2025-01-01 13:06 | DVH ---
CT brain without contrast CLINICAL INDICATION: Altered mental status FINDINGS: The study was performed in a multidetector scanner. This study performed taking axial image s from the skull base up to the vertex. Both brain and bone windows are photographed. Dose lowering techniques have been used including automated exposure control and adjustment of mA and /or KV according to patient size. Normal and symmetrical shape and density of brain parenchyma above and below the tentorium is seen. T here is no mass, midline shift or hydrocephalus. No intra/extra-axial collections demonstrated. There is no intracranial hemorrhage. The calvarium is intact. Retention cyst or mucocele right maxillary s inus. IMPRESSION: 1. No acute cardiopulmonary pathology Computed Tomographic Radiation Dosimetry Report: Total CTDI vol = 58.8mGy Total DLP = 1041.17mGy-cm A ll CT scans at this medical facility are performed using dose modulation techniques as appropriate to a performed exam including the following: Automated exposure control was utilized; adjustment of the MA and/or KvP according to patient size; and use of iterative reconstruction technique.
[2025-01-01 17:06] LABS: Hematocrit 27.4 % (36.0-46.0); Hemoglobin 8.2 g/dL (12.2-16.2)
[2025-01-02 05:00] VITALS: BP 103/51; PULSE 79; RESP 19; TEMP 97.6; O2SAT 97
[2025-01-02 08:00] VITALS: PULSE 59; RESP 14; O2SAT 98
[2025-01-02 08:30] VITALS: BP 91/50; PULSE 59; RESP 14; TEMP 98.4; O2SAT 98
--- NOTE | 2025-01-02 12:16 | DVHDS2 ---
Discharge Summary Date of Admission Jan 01, 2025 at 05:28 Date of Discharge: Jan 02, 2025 Admitting Diagnosis Symptomatic anemia Labs/Diagnostic Data: Laboratory Results Test 01/01/25 16:50 01/01/25 08:05 01/01/25 03:48 Hemoglobin 8.2 g/dL (12.2-16.2) Hematocrit 27.4 % (36.0-46.0) Haptoglobin 102 mg/dL (33-278) Urine Color Colorless (Yellow) Urine Clarity Turbid (Clear) Urine pH 7.5 (5.0-9.0) Urine Specific [place] 1.015 (1.001-1.035) Urine Protein Negative (Negative) Urine Ketones Negative (Negative) Urine Blood 2+ /uL (Negative) Urine Nitrite Negative (Negative) Urine Bilirubin Negative (Negative) Urine Urobilinogen Normal mg/dL (Negative) Urine Leukocyte Esterase Trace /uL (Negative) Urine RBC 19 /hpf (0 - 4) Urine Microscopic WBC 2 /HPF (0-5) Urine Squamous Epithelial Cells Few /hpf (<5) Urine Bacteria None seen /hpf (None Seen) Urine Glucose Normal mg/dL (Normal) White Blood Count 5.6 10^3/uL (4.4-10.8) Red Blood Count 3.58 10^6/uL (4.0-5.20) Mean Corpuscular Volume 56.0 fL (80.0-100.0) Mean Corpuscular Hemoglobin 15.9 pg (28.0-32.0) Mean Corpuscular Hemoglobin Concent 28.3 g/dL (32.0-36.0) Red Cell Distribution Width 19.5 % (11.8-14.3) Platelet Count 274 10^3/uL (140-450) Mean Platelet Volume 8.5 fL (6.9-10.8) Neutrophils (%) (Auto) 59.0 % (37.0-80.0) Lymphocytes (%) (Auto) 29.2 % (10.0-50.0) Monocytes (%) (Auto) 7.6 % (0.0-12.0) Eosinophils (%) (Auto) 3.6 % (0.0-7.0) Basophils (%) (Auto) 0.6 % (0.0-2.0) Neutrophils # (Auto) 3.3 10 ^3/uL (1.6-8.6) Lymphocytes # (Auto) 1.6 10 ^3/uL (0.4-5.4) Monocytes # (Auto) 0.4 10 ^3/uL (0-1.3) Eosinophils # (Auto) 0.2 10 ^3/uL (0-0.8) Basophils # (Auto) 0 10 ^3/uL (0-0.2) Nucleated Red Blood Cells 0.1 % Reticulocyte Count (auto) 2.11 % (0.5-1.5) Prothrombin Time 10.3 sec (9.3-11.8) Prothrombin Time INR 0.97 (0.9-1.15) Activated Partial Thromboplast Time 24.8 SEC (24.5-34.5) Sodium Level 143 mmol/L (136-145) Potassium Level 3.6 mmol/L (3.5-5.1) Chloride Level 112 mmol/L (98-107) Carbon Dioxide Level 24 mmol/L (20-31) Anion Gap 7 (5-15) Blood Urea Nitrogen 13 mg/dL (9-23) Creatinine 0.74 mg/dL (0.550-1.02) Glomerular Filtration Rate Calc 109 mL/min (>90) BUN/Creatinine Ratio 17.6 (10.0-20.0) Serum Glucose 116 mg/dL (74-106) Calcium Level 8.6 mg/dL (8.7-10.4) Iron Level 12 ug/dL (50-170) Total Iron Binding Capacity 404 ug/dL (250-425) Percent Iron Saturation 3.0 % (15-50) Ferritin 1.4 ng/mL (10-291) Total Bilirubin 0.3 mg/dL (0.2-1.0) Aspartate Amino Transferase (AST) 26 U/L (13-40) Alanine Aminotransferase (ALT) 31 U/L (7-40) Alkaline Phosphatase 109 U/L (46-116) Lactate Dehydrogenase 127 U/L (120-246) Total Protein 6.1 g/dL (5.7-8.2) Albumin 3.8 g/dL (3.2-4.8) Beta HCG, Quantitative 0.7 mIU/mL (1.5-4.2) Other Laboratory Tests 01/01/25 16:50 01/01/25 03:48 Brief Hx & Hospital Course: History of Present Illness Patient is a 34-year-old female with a past medical history significant for severe anemia status post multiple transfusion came to the ED this morning with a chief complaint of dizziness and fatigue. Per patient, she feels tired most of the time. However,for the past 2 days she has been very dizziness, She has vomited blood recently but no melena stool. She mentioned that she is currently in her period and uses about 3 sanitary pads per day. She denied any bleeding dyscrasias and not on any blood thinners. Of note, patient was seen here about 6 months ago for similar symptoms. On that admission, she received multiple transfusions well. Patient was advised to get an EGD, but declined given because insurance and financial reasons. Current hgb on this admission is 5.7 with Hct: 20.1. Course of hospitalization: Patient was given 2 units of PRBCs. Iron panel, haptoglobin, Dimitrios test, were all performed with the patient with patient noted to have iron-deficiency anemia. Patient also reported having severe right frontal lobe headache with blurry vision as well as dizziness. CT scan of the head was negative for any acute pathology. Repeat hemoglobin hematocrit have improved to 8.2 and 27. Patient states that she has iron supplementation at home. Patient will be discharged home and follow up with her PCP in 1-2 weeks. Physical examination General: Alert and Oriented x3. No acute distress. Well-nourished. Eyes: EOMI. Anicteric. HENT: Moist mucous membranes. Lungs: Clear to auscultation bilaterally. No accessory muscle use. Cardiovascular: Regular rate and rhythm. No murmur. No JVD. Abdomen: Soft, non-tender and non-distended. No palpable masses. Extremities: No edema. Non-tender. Skin: No rashes or lesions. Warm. Neurologic: No focal neurological deficits. CN II-XII grossly intact, but not individually tested. Psychiatric: Cooperative. Appropriate mood and affect. Total time spent with patient discussing and formulating plan of care: 35 minutes. This medical document was created using an electronic medical record system with [employer] dictation system. Although this document has been carefully reviewed, there may still be some phonetic and typographical errors. These areas are purely typographical due to imperfections of the software programs, and do not reflect any compromise in the patient's medical care. Condition at Discharge: Fair Final Diagnosis/Problems List Iron-deficiency anemia, symptomatic Diagnosis: -obesity -severe headache Discharge Disposition: Home Discharge Instruct/Medications Diet: Regular Activity: No Restrictions, As Tolerated Follow Up/Referral: Follow up with PCP in 1-2 weeks Or follow up with discharge Clinic in one week Medications: Resume home iron-deficiency anemia, iron supplementation. 36 Discharge Statement: "Patient was advised to return to the ER or call 911 if any headaches, dizziness, shortness of breath, chest pain, abdominal pain, bleeding, fevers, or worsening of medical condition. Patient was counseled about treatment plan, medications, possible side effects, patientverbalized understanding. All questions were answered to the best of my ability. This discharge took greater then 30 minutes in planning, reviewing documentation, counseling the patient, and discussing with other team members." ASSESSMENT ASSESSMENT Assessment Iron-deficiency anemia, symptomatic Date of Service: Jan 02, 2025 Billing Provider: SAMAN BELTRAN NP Common Visit Codes: [id number] DISCH DAY >30min SAMAN BELTRAN NP Jan 02, 2025 12:16
[2025-01-02 12:30] VITALS: BP 100/54; PULSE 74; RESP 12; TEMP 98.5; O2SAT 99
--- NOTE | 2025-01-03 17:35 | DVHPN2 ---
Progress Note - Dictate Date Seen: Jan 02, 2025 (Late entryTime of visit 12 noon ) Medical Necessity Reason Pt with a Central, PICC or Fol: No Subjective No active GI bleeding reported Hemoglobin up to 8.2 after 2 units PRBC No nausea vomiting or abdominal pain vital signs Vital Sign Date Time Temp Pulse Resp B/P (MAP) Pulse Ox O2 Delivery O2 Flow Rate FiO2 01/02/25 12:30 98.5 74 12 100/54 (69) 99 98.5 01/02/25 08:00 Room Air* 0 21 Total Intake and Output 01/02/25 01/02/25 01/03/25 15:00 23:00 07:00 Intake Total 110 ml Output Total 0 ml Balance 110 ml 0 ml objective General: NAD, AAOX3 Chest: lung keane clear to auscultation Heart: RRR, no murmur Abdomen: non-distended, no tenderness to palpation, +BS laboratory and microbiology Laboratory Tests 01/01/25 16:50 01/01/25 03:48 Test 01/01/25 03:48 Range/Units Serum Glucose 116 H 74-106 mg/dL Problems(with codes): (1) Symptomatic anemia (2) Generalized weakness Prognosis Plan No bowel movement today, stool for occult blood not obtained Patient is tolerating diet Discharge planning is in progress Patient is refusing endoscopic workup at this time She was encouraged to follow up with me in my office as an outpatient and possibly with an OBGYN She will follow up with Dr. Mederos for her IV iron infusions Once again thank you for allowing me to participate in the care of this patient Plan discussed with: Patient CC Plasma Assessment Blood Product Administration S: 1150 GABY ROGERS MD Jan 03, 2025 17:35
== END 2025-01-02 16:20 | disposition home or self-care (01) | DRG 812 ==
LOC: ER 03:12 → OVERFLOW 05:28 → ER 05:29 → EAST 23:55
PROVIDERS: ADMIT Nurse Practitioner Acute Care; ATTEND Nurse Practitioner Acute Care
PROC: 30233N1 Transfusion of Nonautologous Red Blood Cells into Peripheral Vein, Percutaneous Approach (ICD-10-PCS; principal; 2025-01-01)
DX: D50.9 Iron deficiency anemia, unspecified (principal); K44.9 Diaphragmatic hernia without obstruction or gangrene; E66.9 Obesity, unspecified; K21.9 Gastro-esophageal reflux disease without esophagitis; Z79.899 Other long term (current) drug therapy; Z68.36 Body mass index [BMI] 36.0-36.9, adult
CPT/HCPCS: 36415; 70450; 71045; 80053; 81001; 82728; 83010; 83540; 83550; 83615; 84702; 85014; 85018; 85025; 85045; 85610; 85730; 86850; 86880; 86900; 86901; 86920; G0378; J1756; J2470

== ENCOUNTER 2025-06-13 18:55 | Inpatient (IN) | payer BC, MEDICAID ==
[~2025-06-13] VITALS: Ht 157.5 cm; Wt 91.4 kg
--- NOTE | 2025-06-13 19:22 | ECG ---
[facility] Test Date: 2025-06-13 Test Time: 19:15:14 Pat Name: ANN-MARIE BRYSON Department: ED Room: [facility] Gender: F [employer]: ESTHER : 1990 Requested By: EMERGENCY EMERGENCY Order Number: [id number] Reading MD: Samuel García Measurements Intervals [place] Rate: 103 P: 46 TX: 128 QRS: 56 QRSD: 87 T: -26 QT: 305 QTc: 399 Interpretive Statements Sinus tachycardia Inferior infarct, age indeterminate Lateral leads are also involved Electronically Signed On 06-14-2025 13:12:14 PDT by Samuel García Please click the below link to view image of tracing.
--- NOTE | 2025-06-13 20:10 | ED.PDOC ---
HPI (NEURO) HPI Comments 34 year old female presents to the ED with a chief complaint of dizziness onset today (06/13/25). Patient has been experiencing dizziness, generalized weakness, fatigue, palpitations, pale skin, since this morning. She states she experiences similar symptoms when iron levels are low, last blood transfusion was 2-3 months ago. Patient called PCP office, was recommended to come to ED. PMHx anemia. Denies chest pain, shortness of breath, headache, nausea, vomiting. No other symptoms or modifying factors present at this time. 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 Family History Family History: Reviewed,noncontributory to illness Social History Smoker: Non-Smoker Alcohol: Denies ETOH Use Drugs: Denies Drug Use Lives In: Home Constitutional: reports: weakness; denies: chills, diaphoresis, fatigue, fever, malaise, sweats, others EENTM: denies: blurred vision, double vision, ear bleeding, ear discharge, ear drainage, ear pain, ear ringing, eye pain, eye redness, hearing loss, mouth pain, mouth swelling, nasal discharge, nose bleeding, nose congestion, nose pain, photophobia, tearing, throat pain, throat swelling, voice changes, others Respiratory: denies: cough, hemoptysis, orthopnea, SOB at rest, shortness of breath, SOB with excertion, stridor, wheezing, others Cardiovascular: reports: palpitations; denies: chest pain, dizzy spells, diaphoresis, Dyspnea on exertion, edema, irregular heart beat, left arm pain, lightheadedness, PND, syncope, others Gastrointestinal: denies: abdomen distended, abdominal pain, blood streaked bowels, constipated, diarrhea, dysphagia, difficulty swallowing, hematemesis, melena, nausea, poor appetite, poor fluid intake, rectal bleeding, rectal pain, vomiting, others Genitourinary: denies: abnormal vagina bleeding, burning, dyspareunia, dysuria, flank pain, frequency, hematuria, incontinence, pain, , vagina discharge, urgency, others Neurological: reports: dizziness, weakness; denies: fainting, headache, left sided numbness, left sided weakness, numbness, paresthesia, pre-existing deficit, right sided numbness, right sided weakness, seizure, speech problems, tingling, tremors, others Musculoskeletal: denies: back pain, gout, joint pain, joint swelling, muscle pain, muscle stiffness, neck pain, others Integumetry: denies: bruises, change in color, change in hair/nails, dryness, laceration, lesions, lumps, rash, wounds, others Allergic/Immunocompromised: denies: Difficulty Healing, Frequent Infections, Hives, Itching, others Hematologic/Lymphatic: denies: anemia, blood clots, easy bleeding, easy bruising, swollen glands, others Endocrine: denies: excessive hunger, excessive sweating, excessive thirst, excessive urination, flushing, intolerance to cold, intolerance to heat, unexplained weight gain, unexplained weight loss, others Psychiatric: denies: anxiety, bipolar disorder, depression, hopeless, panic disorder, schizophrenia, sleepless, suicidal, others All Other Systems: Reviewed and Negative Physical Exam General Appearance: No Apparent Distress, Normal HEENT: Normal ENT Inspection, Pharynx Normal, TMs Normal Neck: Full Range of Motion, Non-Tender, Normal, Normal Inspection Respiratory: Chest Non-Tender, Lungs Clear, No Accessory Muscle Use, No Respiratory Distress, Normal Breath Sounds Cardiovascular: No Edema, No JVD, No Murmur, No Gallop, Normal Peripheral Pulses, Regular Rate/Rhythm Breast Exam: Deferred Gastrointestinal: No Organomegaly, Non Tender, No Pulsatile Mass, Normal Bowel Sounds, Soft Genitalia: Deferred Pelvic: Deferred Rectal: Deferred Extremities: No calf tenderness, Normal capillary refill, Normal inspection, Normal range of motion, Non-tender, No pedal edema Musculoskeletal : Apperance: Normal Neurologic: Alert, business reporter II-XII nml as Tested, No Motor Deficits, Normal Affect, Normal Mood, No Sensory Deficits Cerebellar Function: Normal Reflexes: Normal Skin: Dry, Normal Color, Warm Lymphatic: No Adenopathy Was a procedure done? Was a procedure done?: No X-Ray, Labs, Meds, VS Vital Signs Date Time Temp Pulse Resp B/P (MAP) Pulse Ox O2 Delivery O2 Flow Rate FiO2 8/27/25 19:15 103 06/13/25 18:58 98.9 112 18 112/78 98 98.9 Lab Test 06/13/25 21:39 Range/Units White Blood Count 8.6 4.4-10.8 10^3/uL Red Blood Count 4.31 4.0-5.20 10^6/uL Hemoglobin 7.3 L 12.2-16.2 g/dL Hematocrit 24.5 L 36.0-46.0 % Mean Corpuscular Volume 56.8 L 80.0-100.0 fL Mean Corpuscular Hemoglobin 16.9 L 28.0-32.0 pg Mean Corpuscular Hemoglobin Concent 29.7 L 32.0-36.0 g/dL Red Cell Distribution Width 18.4 H 11.8-14.3 % Platelet Count 294 140-450 10^3/uL Mean Platelet Volume 8.1 6.9-10.8 fL Neutrophils (%) (Auto) 57.7 37.0-80.0 % Lymphocytes (%) (Auto) 31.0 10.0-50.0 % Monocytes (%) (Auto) 7.1 0.0-12.0 % Eosinophils (%) (Auto) 3.7 0.0-7.0 % Basophils (%) (Auto) 0.5 0.0-2.0 % Neutrophils # (Auto) 4.9 1.6-8.6 10 ^3/uL Lymphocytes # (Auto) 2.7 0.4-5.4 10 ^3/uL Monocytes # (Auto) 0.6 0-1.3 10 ^3/uL Eosinophils # (Auto) 0.3 0-0.8 10 ^3/uL Basophils # (Auto) 0 0-0.2 10 ^3/uL Nucleated Red Blood Cells 0.0 % Platelet Estimate Adequate Hypochromasia (manual) Marked Anisocytosis (manual) Slight Microcytosis Marked Tear Drop Cells Few Ovalocytes Few Prothrombin Time 10.5 9.3-11.8 sec Prothrombin Time INR 0.99 0.9-1.15 Activated Partial Thromboplast Time 26.1 24.5-34.5 SEC Sodium Level 140 136-145 mmol/L Potassium Level 3.7 3.5-5.1 mmol/L Chloride Level 109 H 98-107 mmol/L Carbon Dioxide Level 24 20-31 mmol/L Anion Gap 7 5-15 Blood Urea Nitrogen 10 9-23 mg/dL Creatinine 0.90 0.550-1.02 mg/dL Glomerular Filtration Rate Calc 86 >90 mL/min BUN/Creatinine Ratio 11.1 10.0-20.0 Serum Glucose 93 74-106 mg/dL Calcium Level 8.3 L 8.7-10.4 mg/dL Magnesium Level 2.2 1.6-2.6 mg/dL Iron Level Pending Total Iron Binding Capacity Pending Percent Iron Saturation Pending Time of 1ST Reevaluation: 20:15 Reevaluation 1ST: Unchanged Patient Education/Counseling: Diagnosis, Treatment Family Education/Counseling: No Family Present Departure 1 Departure Time of Disposition: 22:57 Impression: Primary Impression: Symptomatic anemia Additional Impression: Dysfunctional uterine bleeding Disposition: ADMITTED INPATIENT Admit to: Med Surg Condition: Guarded Comments Patient is very anemic on lab review. MCV is low, it looks like blood loss anemia and iron deficiency anemia. This is likely due to the dysfunctional uterine bleeding. I ordered a blood transfusion. Patient is tachycardic with signs of hypovolemia. Patient will need to be admitted for stabilization and further workup. Critical Care Note Critical Care Time?: Yes (35 min-critical care time only) Critical care comment: Total critical care time: Approximately 36 minutes Due to a high probability of clinically significant, life threatening deterioration, the patient required my highest level of preparedness to intervene emergently and I personally spent this critical care time directly and personally managing the patient. This critical care time included obtaining a history; examining the patient; pulse oximetry; ordering and review of studies; arranging urgent treatment with development of a management plan; evaluation of patient's response to treatment; frequent reassessment; and, discussions with other providers. This critical care time was performed to assess and manage the high probability of imminent, life-threatening deterioration that could result in multi-organ failure. It was exclusive of separately billable procedures and treating other patients. Stability Stability form required: No I personally scribed for SCARLETT BOWDEN MD ([email or web address]) on 06/13/25 at 20:10. Electronically submitted by Marissa Reyes ([email or web address]). SCARLETT BOWDEN MD Jun 13, 2025 20:10
[2025-06-13 21:52] LABS: Hematocrit 24.5 % (36.0-46.0); Hemoglobin 7.3 g/dL (12.2-16.2); Mean Corpuscular Hemoglobin 16.9 pg (28.0-32.0); Mean Corpuscular Volume 56.8 fL (80.0-100.0); Nucleated Red Blood Cells % 0.0 %
[2025-06-13 21:59] LABS: Potassium 3.7 mmol/L (3.5-5.1); Sodium 140 mmol/L (136-145)
[2025-06-13 22:00] LABS: Anion Gap 7 (5-15); Carbon Dioxide 24 mmol/L (20-31); Chloride 109 mmol/L (98-107)
[2025-06-13 22:05] LABS: BUN/Creatinine Ratio 11.1 (10.0-20.0); Blood Urea Nitrogen 10 mg/dL (9-23); Glucose 93 mg/dL (74-106)
[2025-06-13 22:06] LABS: Magnesium 2.2 mg/dL (1.6-2.6)
[2025-06-13 22:08] LABS: Calcium 8.3 mg/dL (8.7-10.4)
[2025-06-13 22:09] LABS: INR 0.99 (0.9-1.15); Partial Thromboplastin Time 26.1 SEC (24.5-34.5); Prothrombin Time 10.5 sec (9.3-11.8)
[2025-06-13 22:40] LABS: Anisocytosis Slight; Ovalocytes FEW
[2025-06-13 22:41] LABS: Tear Drop Cells FEW
[2025-06-13 23:32] LABS: Total Iron Binding Capacity 366.0 ug/dL (250-425)
[2025-06-13 23:41] LABS: Iron 16.0 ug/dL (50-170)
[2025-06-14] VITALS (7 sets, daily range): BP systolic 90–113; BP diastolic 55–61; PULSE 75–104; RESP 13–22; TEMP 98.2–98.6; O2SAT 98–100
[2025-06-14] MEDS: SODIUM CHLORIDE 0.9% 1,000 ML IV ONE
[2025-06-14] MEDS: PANTOPRAZOLE 40 MG/10 ML VIAL INJ IV ONE (02:40)
[2025-06-14] MEDS ORDERED: ACETAMINOPHEN 325 MG TAB PO PRN (09:00)
[2025-06-14] MEDS ORDERED: ONDANSETRON HCL 4 MG/2 ML VIAL IV PRN (09:00)
[2025-06-14 09:08] LABS: Urine Protein, UAD Negative (Negative)
--- NOTE | 2025-06-14 09:09 | DVHHP2 ---
History of Present Illness Reason for Visit: Dizziness History of Present Illness Kaylynn Lopes is a 35-year-old female with past medical history of anemia and who presents to the ED with dizziness, generalized weakness, fatigue, palpitations, and pale skin that started today. Patient reports that she has a history of receiving for blood transfusions and taking iron supplements. She also reported that she was seeing a GI specialist had an EGD done and they reported that everything was normal but wanted to do a colonoscopy but she did not continue as she stated she was scared. She also reported that she has some scarring when the EGD was done in her throat. Patient also reports that after the blood transfusions she developed menorrhagia and was supposed to see an Ob doctor. She also reports some abdominal discomfort. Patient denies any chest pain, shortness of breath, fever, chills, lightheadedness, nausea, vomiting, diarrhea, urinary symptoms, hematemesis, melena, or hematochezia. Heme/Onc: Anemia NOS Past Surgical History: , Other (EGD) Family History: DM, Other (Grandmother with diabetes) Smoke: # pack years ALCOHOL: heavy Drugs: None Lives: with Family Domestic Violence: Neg Review of Systems Constitutional: Yes: Weakness, Other Cardiovascular: Palpitations Allergies: Coded Allergies: NO KNOWN ALLERGIES (Unverified , 02/19/24) Medications Current Medications Medications Dose Ordered Sig/Chelsey Route Start Time Stop Time Status Last Admin Dose Admin Ondansetron HCl 4 mg Q4HP PRN IV 06/14/25 09:00 UNV Acetaminophen 650 mg Q6HP PRN PO 06/14/25 09:00 UNV Exam Vital Signs Vital Signs Date Time Temp Pulse Resp B/P (MAP) Pulse Ox O2 Delivery O2 Flow Rate FiO2 06/14/25 07:45 94 18 100 Room Air* 0 21 06/14/25 07:30 98.6 94/58 (70) 98.6 General Appearance: Alert, Oriented X3, Cooperative, No acute distress HEENT: Atraumatic, PERRLA, EOMI, Mucous membr. moist/pink Respiratory: Clear to auscultation, Normal air movement Cardiovascular: Regular rate, Normal S1, Normal S2, No murmurs Abdominal: Normal bowel sounds, Soft, No tenderness, No hepatospenomegaly, No masses Extremities: No clubbing, No cyanosis, No edema, Normal pulses, No tenderness/s welling Skin: No rashes, No breakdown, No significant lesion Neuro: Normal gait, Normal speech, Strength at 5/5 X4 ext, Normal tone, Sensation intact Psych/Mental Status: Mental status NL, Mood NL Labs/Xrays Labs Test 06/14/25 08:48 06/13/25 21:39 Range/Units White Blood Count 8.6 4.4-10.8 10^3/uL Red Blood Count 4.31 4.0-5.20 10^6/uL Hemoglobin 7.3 L 12.2-16.2 g/dL Hematocrit 24.5 L 36.0-46.0 % Mean Corpuscular Volume 56.8 L 80.0-100.0 fL Mean Corpuscular Hemoglobin 16.9 L 28.0-32.0 pg Mean Corpuscular Hemoglobin Concent 29.7 L 32.0-36.0 g/dL Red Cell Distribution Width 18.4 H 11.8-14.3 % Platelet Count 294 140-450 10^3/uL Mean Platelet Volume 8.1 6.9-10.8 fL Neutrophils (%) (Auto) 57.7 37.0-80.0 % Lymphocytes (%) (Auto) 31.0 10.0-50.0 % Monocytes (%) (Auto) 7.1 0.0-12.0 % Eosinophils (%) (Auto) 3.7 0.0-7.0 % Basophils (%) (Auto) 0.5 0.0-2.0 % Neutrophils # (Auto) 4.9 1.6-8.6 10 ^3/uL Lymphocytes # (Auto) 2.7 0.4-5.4 10 ^3/uL Monocytes # (Auto) 0.6 0-1.3 10 ^3/uL Eosinophils # (Auto) 0.3 0-0.8 10 ^3/uL Basophils # (Auto) 0 0-0.2 10 ^3/uL Nucleated Red Blood Cells 0.0 % Platelet Estimate Adequate Hypochromasia (manual) Marked Anisocytosis (manual) Slight Microcytosis Marked Tear Drop Cells Few Ovalocytes Few Prothrombin Time 10.5 9.3-11.8 sec Prothrombin Time INR 0.99 0.9-1.15 Activated Partial Thromboplast Time 26.1 24.5-34.5 SEC Sodium Level 140 136-145 mmol/L Potassium Level 3.7 3.5-5.1 mmol/L Chloride Level 109 H 98-107 mmol/L Carbon Dioxide Level 24 20-31 mmol/L Anion Gap 7 5-15 Blood Urea Nitrogen 10 9-23 mg/dL Creatinine 0.90 0.550-1.02 mg/dL Glomerular Filtration Rate Calc 86 >90 mL/min BUN/Creatinine Ratio 11.1 10.0-20.0 Serum Glucose 93 74-106 mg/dL Calcium Level 8.3 L 8.7-10.4 mg/dL Magnesium Level 2.2 1.6-2.6 mg/dL Iron Level 16 L 50-170 ug/dL Total Iron Binding Capacity 366 250-425 ug/dL Percent Iron Saturation 4.4 L 15-50 % SEPSIS Sepsis Screen Date sepsis recognized/suspect: Jun 14, 2025 Time Sepsis recognized/suspect: 800 Recent Procedure: No On Antibiotic Therapy: No Respiratory Rate >20: No Heart Rate >90: Yes Temp<36 C (96.8 F) or >38.3 C: No SBP <90 or MAP <65 mmHG: No New Acute Mental Status Change: No Is the patient on CPAP, BIPAP,: No Physician Orders Orthostatic Vital Signs (06/14/25 08:58) Iron Panel (06/14/25 08:58) Stool Occult Blood (06/14/25 08:58) Haptoglobin (06/14/25 08:58) Reticulocyte Count (06/14/25 08:58) Direct Dimitrios (06/14/25 08:58) Indirect Dimitrios Test (06/14/25 08:58) Admit (06/14/25 08:58) Allergies (06/14/25 08:58) Code Status (06/14/25 08:58) Ondansetron Hcl (Zofran) (06/14/25 09:00) Complete Blood Count (06/15/25 04:00) Comprehensive Metabolic Panel (06/15/25 04:00) Cardiac Diet-2gna,Lofat,Lochol (06/14/25 Breakfast) Acetaminophen Tablet (Tylenol Tablet) (06/14/25 09:00) Sequential Compression Device (06/14/25 ) Vital Signs Date Time Temp Pulse Resp B/P (MAP) Pulse Ox O2 Delivery O2 Flow Rate FiO2 06/14/25 07:45 94 18 100 Room Air* 0 21 06/14/25 07:30 98.6 94 18 94/58 (70) 100 98.6 06/14/25 06:00 98.7 78 16 96/64 (75) 99 98.7 06/14/25 04:31 98.2 84 15 113/61 98.2 06/14/25 04:00 98.7 77 18 113/61 (78) 98 98.7 06/14/25 02:00 98.7 80 14 99/60 (73) 99 98.7 06/14/25 01:52 98.6 101 19 90/55 98.6 06/14/25 01:52 98.6 97 17 90/55 98.6 06/14/25 01:23 98.6 104 16 96/55 98.6 Laboratory Tests Test 06/13/25 21:39 White Blood Count 8.6 10^3/uL (4.4-10.8) Medications Medications Dose Ordered Sig/Chelsey Route Start Time Stop Time Status Last Admin Dose Admin Pantoprazole Sodium 40 mg ONCE ONCE IV 06/14/25 02:00 06/14/25 02:01 DC 06/14/25 02:40 40 MG Sodium Chloride 1,000 ml @ 1,000 mls/hr Q1H ONCE IV 06/13/25 23:00 06/13/25 23:59 DC 06/14/25 00:00 1,000 MLS/HR Assessment/Plan Assessment/Plan Assessment Severe anemia requiring blood transfusions Abdominal discomfort likely due to anemia Obesity History of History of blood transfusions Plan Admit to [facility] Type and screen Transfuse PRBCs for hemoglobin less than 7.0 Antiemetics Pain management NS 1 L given in ED Mag level PT/PTT UA EKG Chest x-ray CT head Orthostatics Stool OB Iron panel Reticulocyte panel Haptoglobin Dimitrios test-direct and indirect Diet Home medications reconciled DVT prophylaxis-SCDs PUD prophylaxis-PPIs Discussed plan of care with patient and nurse Counseled patient on lifestyle modifications, diet, and exercise [id number] Preventive counseling healthy eating habits, physical activity, and regular checkups Plan discussed with: Patient My Orders Orders - DASIA JOHNSTON [employer] OPERATOR Procedure Category Date Status Time Orthostatic Vital ORDERS 06/14/25 Transmitted Signs 08:58 Iron Panel LAB 06/14/25 Transmitted 08:58 Stool Occult Blood LAB 06/14/25 Transmitted 08:58 Haptoglobin LAB 06/14/25 Transmitted 08:58 Reticulocyte Count LAB 06/14/25 Transmitted 08:58 Direct Dimitrios BBK 06/14/25 Transmitted 08:58 Indirect Dimitrios Test BBK 06/14/25 Transmitted 08:58 Admit ADMIT 06/14/25 Transmitted 08:58 Allergies LORY 06/14/25 Transmitted 08:58 Code Status CODE 06/14/25 Transmitted 08:58 Ondansetron Hcl PHA 06/14/25 Transmitted (Zofran) 09:00 Complete Blood Count LAB 06/15/25 Verified 04:00 Comprehensive LAB 06/15/25 Verified Metabolic Panel 04:00 Cardiac DIET 06/14/25 Transmitted Diet-2gna,Lofat,Lochol Breakfast Acetaminophen Tablet PHA 06/14/25 Transmitted (Tylenol Tablet) 09:00 Sequential LORY 06/14/25 Transmitted Compression Device Date of Service: Jun 14, 2025 Billing Provider: DASIA JOHNSTON Common Visit Codes: 57196-[id number] INP/OBS CARE (HIGH) Secondary Visit Codes: [id number] COUNSELING IND DASIA JOHNSTON Jun 14, 2025 09:09
[2025-06-14 09:51] LABS: Hematocrit 29.3 % (36.0-46.0); Hemoglobin 8.8 g/dL (12.2-16.2); Mean Corpuscular Hemoglobin 18.6 pg (28.0-32.0); Mean Corpuscular Volume 62.0 fL (80.0-100.0); Nucleated Red Blood Cells % 0.1 %
[2025-06-14] MEDS: PANTOPRAZOLE 40 MG TAB PO SCH (10:11)
[2025-06-14] MEDS: FERROUS SULFATE 325mg EC TAB PO SCH (10:11)
[2025-06-14 10:15] LABS: Iron 51.0 ug/dL (50-170)
--- NOTE | 2025-06-14 10:15 | DVH ---
CLINICAL INFORMATION: 35 years old, Female; dizziness. TECHNIQUE: Axial imaging was obtained through the brain without contrast. Coronal and sagittal reform atted images were obtained, reviewed, and stored. Images were reviewed in brain and bone windows. Al l CT scans at this medical facility are performed using dose modulation techniques as appropriate to a performed exam including the following: Automated exposure control was utilized; adjustment of the MA and/or KV according to patient size; and use of iterative reconstruction technique. CTDIvol = 57.8 7 mGy DLP = 995.75 mGy-cm COMPARISON: CT HEAD WITHOUT CONTRAST on DOS: 01/01/25, CERVICAL WITHOUT CONTRAST on DOS: 12/15/21 FINDINGS: There is no acute intracranial hemorrhage. No mass effect or midline shift. The ventricles and sulci are within normal limits in size for age. Basal cisterns are patent. The calvarium is unre markable. Paranasal sinuses and mastoid air cells are clear. IMPRESSION: No CT evidence of acute intracranial abnormality.
[2025-06-14 10:18] LABS: Total Iron Binding Capacity 334.0 ug/dL (250-425)
--- NOTE | 2025-06-14 10:23 | DVH ---
CHEST RADIOGRAPH Indication: r/o pna Technique: Single frontal view of the chest was obtained Comparison: XY CHEST XRAY 1 VIEW on DOS: 01/01/25, XY CHEST TWO VIEWS ROUTINE on DOS: 09/03/24, CHEST WITHOUT CONTRAST on DOS: 12/15/21 FINDINGS: Lines and Tubes: None Lungs: No focal consolidation. Pleura: No effusion. No pneumothorax. Cardiomediastinal contours: Unremarkable Bones: No acute osseous abnormality. IMPRESSION: No acute cardiopulmonary disease.
== END 2025-06-14 20:09 | disposition left against medical advice (07) | DRG 812 ==
LOC: ER 18:57 → OVERFLOW 06-14 08:58
PROC: 30233N1 Transfusion of Nonautologous Red Blood Cells into Peripheral Vein, Percutaneous Approach (ICD-10-PCS; principal; 2025-06-14)
DX: D64.9 Anemia, unspecified (principal); Z68.36 Body mass index [BMI] 36.0-36.9, adult; E66.9 Obesity, unspecified; N93.8 Other specified abnormal uterine and vaginal bleeding; Z53.29 Procedure and treatment not carried out because of patient's decision for other reasons; Z98.891 History of uterine scar from previous surgery; Z83.3 Family history of diabetes mellitus
CPT/HCPCS: 36415; 36430; 70450; 71045; 80048; 81001; 81025; 83010; 83540; 83550; 83735; 85025; 85045; 85610; 85730; 86850; 86880; 86900; 86901; 86922; 93005; 96361; 96374; 99291; G0378; J2470

== ENCOUNTER 2025-07-28 23:58 | Emergency (ER) | payer BC, MEDICAID ==
[~2025-07-28] VITALS: Ht 165.1 cm; Wt 92.0 kg
--- NOTE | 2025-07-29 00:39 | ED.PDOC ---
HPI Comments 35-year-old female who came to ER for chest pains. Patient has history of anemia, recently underwent iron transfusion. With a past 6 days she has been experiencing intermittent episodes of right-sided chest pains, pressure, aching, nonradiating, associated with shortness a breath. Denies any recent trauma Chief Complaint: Chest Pain Time Seen by MD: 00:39 Primary Care Provider: NONE Reviewed Notes: Nurses Notes Allergies: Coded Allergies: NO KNOWN ALLERGIES (Unverified , 02/19/24) Home Meds Active Scripts Methylprednisolone (Medrol Dosepak) 4 Mg Osito, 4 MG PO UD for 6 Days, #21 TAB UAD Prov:LUCY BOURGEOIS [employer] 09/03/24 Azithromycin (Azithromycin) 250 Mg Tab, 250 MG PO DAILY MDD 500 for 5 Days, #6 TAB 0 Refills 2 TABLETS ORALLY ON DAY ONE, THEN 1 TABLET ORALLY DAILY FOR 4 DAYS Prov:LUCY BOURGEOIS [facility] 09/03/24 Pantoprazole Sodium Sesquihydr (Protonix) 40 Mg Tab, 40 MG PO DAILY for 30 Days, #30 TAB 3 Refills Prov:VARGAS SALCEDO RESIDENT 06/08/24 Ferrous Sulfate (FERROUS SULFATE) 325 Mg Tb, 325 MG PO DAILY for 30 Days, #30 TAB 3 Refills Prov:VARGAS SALCEDO RESIDENT 06/08/24 Dextromethorphan-Guaifenesin (Robitussin-Dm) 10 Ml Sr, 20 ML GT Q4HPRN PRN, #120 ML Prov:MACIE LAWRENCE PAC 02/19/24 Reported Medications Calcium Carbonate (Tums) 500 Mg Chw, 500 MG PO PRN, TAB.CHEW 06/06/24 Information Source: Patient Mode of Arrival: Ambulatory Severity: Moderate Timing: Days Duration: Intermittent Location: Chest (R) Radiation: No Radiation Quality: Pressure, Aching Onset: With Light Exertion Cardiac Risk Factors: None PE Risk Factors: None History of: Similar pain in past Past Medical History PAST MEDICAL HISTORY: Anemia Surgical History: Denies all surgeries PHYSICAL EDUCATION SPECIALIST History: Denies all PHYSICAL EDUCATION SPECIALIST Hx Family History Family History: Reviewed,noncontributory to illness Social History Smoker: Non-Smoker Alcohol: Denies ETOH Use Drugs: Denies Drug Use Lives In: Home Constitutional: denies: chills, diaphoresis, fatigue, fever, malaise, sweats, weakness, others EENTM: denies: blurred vision, double vision, ear bleeding, ear discharge, ear drainage, ear pain, ear ringing, eye pain, eye redness, hearing loss, mouth pain, mouth swelling, nasal discharge, nose bleeding, nose congestion, nose pain, photophobia, tearing, throat pain, throat swelling, voice changes, others Respiratory: reports: SOB at rest, shortness of breath; denies: cough, hemoptysis, orthopnea, SOB with excertion, stridor, wheezing, others Cardiovascular: reports: chest pain; denies: dizzy spells, diaphoresis, Dyspnea on exertion, edema, irregular heart beat, left arm pain, lightheadedness, palpitations, PND, syncope, others Gastrointestinal: denies: abdomen distended, abdominal pain, blood streaked bowels, constipated, diarrhea, dysphagia, difficulty swallowing, hematemesis, melena, nausea, poor appetite, poor fluid intake, rectal bleeding, rectal pain, vomiting, others Genitourinary: denies: abnormal vagina bleeding, burning, dyspareunia, dysuria, flank pain, frequency, hematuria, incontinence, pain, , vagina dischar ge, urgency, others Neurological: denies: dizziness, fainting, headache, left sided numbness, left sided weakness, numbness, paresthesia, pre-existing deficit, right sided numbness, right sided weakness, seizure, speech problems, tingling, tremors, weakness, others Musculoskeletal: denies: back pain, gout, joint pain, joint swelling, muscle pain, muscle stiffness, neck pain, others Integumetry: denies: bruises, change in color, change in hair/nails, dryness, laceration, lesions, lumps, rash, wounds, others Allergic/Immunocompromised: denies: Difficulty Healing, Frequent Infections, Hives, Itching, others Hematologic/Lymphatic: denies: anemia, blood clots, easy bleeding, easy bruising, swollen glands, others Endocrine: denies: excessive hunger, excessive sweating, excessive thirst, excessive urination, flushing, intolerance to cold, intolerance to heat, unexplained weight gain, unexplained weight loss, others Psychiatric: denies: anxiety, bipolar disorder, depression, hopeless, panic disorder, schizophrenia, sleepless, suicidal, others Physical Exam General Appearance: No Apparent Distress, Normal HEENT: Normal ENT Inspection, Pharynx Normal, TMs Normal Neck: Full Range of Motion, Non-Tender, Normal, Normal Inspection Respiratory: Chest Non-Tender, Lungs Clear, No Accessory Muscle Use, No Respiratory Distress, Normal Breath Sounds Cardiovascular: No Edema, No JVD, No Murmur, No Gallop, Normal Peripheral Pulses, Regular Rate/Rhythm Breast Exam: Deferred Gastrointestinal: No Organomegaly, Non Tender, No Pulsatile Mass, Normal Bowel Sounds, Soft Genitalia: Deferred Pelvic: Deferred Rectal: Deferred Extremities: No calf tenderness, Normal capillary refill, Normal inspection, Normal range of motion, Non-tender, No pedal edema Musculoskeletal : Apperance: Normal Neurologic: Alert, shell trim tool setter II-XII nml as Tested, No Motor Deficits, Normal Affect, Normal Mood, No Sensory Deficits Cerebellar Function: Normal Reflexes: Normal Skin: Dry, Normal Color, Warm Lymphatic: No Adenopathy Was a procedure done? Was a procedure done?: No CP Differential Dx Differential Diagnosis: Angina, Anxiety / Panic Attack Differential Diagnosis: Angina, Chest Wall Pain, Costochondritis, Esophageal reflux/spasm, Gastritis, Myocardial Infarction X-Ray, Labs, Meds, VS Vital Signs Date Time Temp Pulse Resp B/P (MAP) Pulse Ox O2 Delivery O2 Flow Rate FiO2 07/29/25 00:58 98 07/29/25 00:16 103 07/29/25 00:06 98.4 118 18 119/70 98 98.4 Lab Test 07/29/25 01:12 07/29/25 00:37 Range/Units Troponin I High Sensitivity Pending < 3 L </=34 ng/L White Blood Count 10.3 4.4-10.8 10^3/uL Red Blood Count 4.39 4.0-5.20 10^6/uL Hemoglobin 8.7 L 12.2-16.2 g/dL Hematocrit 27.8 L 36.0-46.0 % Mean Corpuscular Volume 63.5 L 80.0-100.0 fL Mean Corpuscular Hemoglobin 19.8 L 28.0-32.0 pg Mean Corpuscular Hemoglobin Concent 31.2 L 32.0-36.0 g/dL Red Cell Distribution Width 22.3 H 11.8-14.3 % Platelet Count 275 140-450 10^3/uL Mean Platelet Volume 8.3 6.9-10.8 fL Neutrophils (%) (Auto) 68.4 37.0-80.0 % Lymphocytes (%) (Auto) 21.6 10.0-50.0 % Monocytes (%) (Auto) 6.2 0.0-12.0 % Eosinophils (%) (Auto) 3.6 0.0-7.0 % Basophils (%) (Auto) 0.2 0.0-2.0 % Neutrophils # (Auto) 7.0 1.6-8.6 10 ^3/uL Lymphocytes # (Auto) 2.2 0.4-5.4 10 ^3/uL Monocytes # (Auto) 0.6 0-1.3 10 ^3/uL Eosinophils # (Auto) 0.4 0-0.8 10 ^3/uL Basophils # (Auto) 0 0-0.2 10 ^3/uL Nucleated Red Blood Cells 0.1 % Platelet Estimate Pending D-Dimer, Quantitative 0.47 0.0-0.49 mg/L FEU Sodium Level 143 136-145 mmol/L Potassium Level 3.9 3.5-5.1 mmol/L Chloride Level 109 H 98-107 mmol/L Carbon Dioxide Level 23 20-31 mmol/L Anion Gap 11 5-15 Blood Urea Nitrogen 13 9-23 mg/dL Creatinine 0.85 0.550-1.02 mg/dL Glomerular Filtration Rate Calc 92 >90 mL/min BUN/Creatinine Ratio 15.3 10.0-20.0 Serum Glucose 109 H 74-106 mg/dL Calcium Level 8.6 L 8.7-10.4 mg/dL PROCEDURE(s): CXRP - CHEST PORTABLE REASON: cp ORDER NUMBER(s): [id number], ACCESSION NUMBER(s): [id number] INDICATION: cp TECHNIQUE: Frontal view of the chest. COMPARISON: XY CHEST XRAY 1 VIEW on DOS: 06/14/25, XY CHEST XRAY 1 VIEW on DOS: 01/01/25, XY CHEST TWO VIEWS ROUTINE on DOS: 09/03/24, CHEST WITHOUT CONTRAST on DOS: 12/15/21 FINDINGS: . The heart and mediastinal contours are grossly unremarkable. There is no evidence of pleural disease. The lungs are clear. The bony structures of the chest are intact without fracture. IMPRESSION: 1. No evidence of acute disease. Time of 1ST Reevaluation: 00:37 Reevaluation 1ST: Unchanged Patient Education/Counseling: Diagnosis, Treatment Family Education/Counseling: No Family Present SEPSIS Sepsis Screen Date sepsis recognized/suspect: Jul 29, 2025 Time Sepsis recognized/suspect: 0011 Recent Procedure: No On Antibiotic Therapy: No Respiratory Rate >20: No Heart Rate >90: No Temp<36 C (96.8 F) or >38.3 C: No SBP <90 or MAP <65 mmHG: No New Acute Mental Status Change: No Is the patient on CPAP, BIPAP,: No Physician Orders Complete Blood Count (07/29/25 00:20) Chest Portable (07/29/25 00:20) Urinalysis (07/29/25 00:20) Test, Urine (07/29/25 00:20) Electrocardigram (07/29/25 00:20) Troponin-I Hs (07/29/25 01:20) Troponin-I Hs (07/29/25 03:20) Electrocardigram (07/29/25 01:20) Electrocardigram (07/29/25 03:20) Rbc Morphology (07/29/25 00:37) Vital Signs Date Time Temp Pulse Resp B/P (MAP) Pulse Ox O2 Delivery O2 Flow Rate FiO2 07/29/25 00:58 98 07/29/25 00:16 103 07/29/25 00:06 98.4 118 18 119/70 98 98.4 Laboratory Tests Test 07/29/25 00:37 White Blood Count 10.3 10^3/uL (4.4-10.8) Departure 1 Departure Time of Disposition: 02:13 (Patient presented with chest pain that was concerning for possible STEMI, ACS, PE, Pneumonia, Muscle Strain, COPD, Dissection. Data: 1. I ordered and reviewed the result of at least 3 labs including a CBC, BMP, and Troponin. 2. I independently interpreted the following tests: EKG which shows normal sinus rhythm and Chest X-ray which shows a benign chest.Risk:This patient presented with a high risk of morbidity due to further diagnostic testing or treatment and may suffer from an acute cardiac or respiratory disorder. After review of all the data patient is unlikely to have a pe , dissection, and is low risk for acs. Patient is stable at this time.Workup so far is benign and patient will be discharged with outpatient followup. ) Impression: Primary Impression: Acute chest pain Disposition: HOME / SELF CARE / HOMELESS Condition: Stable Additional Instructions: You presented today with chest pain. Your workup today was benign including labs, troponin, EKG, chest x-ray. Your pain may be from musculoskeletal strain, acid reflux, anxiety, or many other factors. It is important to follow up with your regular doctor within 1 week. If your symptoms worsen or you have any other concerns please return to the emergency room. Discharged With: Self Critical Care Note Critical Care Time?: No Stability Stability form required: No Heart Score Heart Score: Heart Score Response (Comments) Value History Slightly Suspicious 0 EKG Normal 0 Age <45 0 Risk Factors No known risk factors 0 Troponin Normal limit 0 Total 0 I personally scribed for ROSANNE FERNANDEZ MD ([email or web address]) on 07/29/25 at 00:39. Electronically submitted by Lan Narayanan ([employer]). I personally scribed for ROSANNE FERNANDEZ MD ([email or web address]) on 07/29/25 at 02:05. Electronically submitted by Lan Narayanan ([employer]). ROSANNE FERNANDEZ MD Jul 29, 2025 00:39
--- NOTE | 2025-07-29 00:48 | DVH ---
INDICATION: cp TECHNIQUE: Frontal view of the chest. COMPARISON: XY CHEST XRAY 1 VIEW on DOS: 06/14/25, XY CHEST XRAY 1 VIEW on DOS: 01/01/25, XY CHEST TWO VIEWS ROUTINE on DOS: 09/03/24, CHEST WITHOUT CONTRAST on DOS: 12/15/21 FINDINGS: . The heart and mediastinal contours are grossly unremarkable. There is no evidence of pleural disea se. The lungs are clear. The bony structures of the chest are intact without fracture. IMPRESSION: 1. No evidence of acute disease.
[2025-07-29 01:09] LABS: Nucleated Red Blood Cells % 0.1 %
[2025-07-29 01:10] LABS: Potassium 3.9 mmol/L (3.5-5.1); Sodium 143 mmol/L (136-145)
[2025-07-29 01:11] LABS: Anion Gap 11 (5-15); Carbon Dioxide 23 mmol/L (20-31); Hematocrit 27.8 % (36.0-46.0); Hemoglobin 8.7 g/dL (12.2-16.2); Mean Corpuscular Hemoglobin 19.8 pg (28.0-32.0); Mean Corpuscular Volume 63.5 fL (80.0-100.0)
[2025-07-29 01:15] LABS: Calcium 8.6 mg/dL (8.7-10.4); Chloride 109 mmol/L (98-107)
[2025-07-29 01:16] LABS: BUN/Creatinine Ratio 15.3 (10.0-20.0); Blood Urea Nitrogen 13 mg/dL (9-23); Glucose 109 mg/dL (74-106)
[2025-07-29 02:20] VITALS: BP 97/66; PULSE 94; RESP 16; TEMP 98.3; O2SAT 98
[2025-07-29 02:20] LABS: Anisocytosis Moderate
--- NOTE | 2025-07-29 11:04 | ECG ---
[facility] Test Date: 2025-07-29 Test Time: 00:13:34 Pat Name: ANN-MARIE BRYSON Department: ED Room: Gender: F Doorkeeper: : 1990 Requested By: ROSANNE FERNANDEZ Order Number: [id number] Reading MD: Samuel García Measurements Intervals [place] Rate: 103 P: 62 UT: 129 QRS: 83 QRSD: 89 T: -27 QT: 305 QTc: 399 Interpretive Statements Sinus tachycardia Borderline repolarization abnormality Electronically Signed On 07-31-2025 15:07:54 PDT by Samuel García Please click the below link to view image of tracing.
--- NOTE | 2025-07-30 09:28 | ECG ---
[facility] Test Date: 2025-07-29 Test Time: 00:58:35 Pat Name: ANN-MARIE BRYSON Department: ED Room: Gender: F Medical Claims Manager: sonny : 1990 Requested By: ROSANNE FERNANDEZ Order Number: [id number] Reading MD: Samuel García Measurements Intervals [place] Rate: 98 P: 61 CA: 131 QRS: 85 QRSD: 90 T: -21 QT: 311 QTc: 398 Interpretive Statements Sinus rhythm Borderline repolarization abnormality Electronically Signed On 07-31-2025 15:07:59 PDT by Samuel García Please click the below link to view image of tracing.
== END 2025-07-29 02:28 | disposition home or self-care (01) ==
LOC: ER 07-29 00:04
DX: R07.89 Other chest pain (principal); Z79.899 Other long term (current) drug therapy
CPT/HCPCS: 36415; 71045; 80048; 84484; 85025; 85379; 93005

== ENCOUNTER 2025-10-04 23:47 | Emergency (ER) | payer BC, MEDICAID ==
[~2025-10-04] VITALS: Ht 157.5 cm; Wt 90.9 kg
[2025-10-05] MEDS: methylPREDNISolone SOD SUCC 125 MG/2 ML VL IM ONE (00:31)
[2025-10-05] MEDS: ALBUTEROL SULF 2.5 MG/0.5ML(0.5%) NEB SOLN NEB ONE (00:48)
[2025-10-05] MEDS: IPRATROPIUM BROM 0.5 MG/2.5ML INH SOL NEB ONE (00:48)
--- NOTE | 2025-10-05 00:50 | DVH ---
CHEST RADIOGRAPH INDICATION: sob TECHNIQUE: Single frontal view of the chest was obtained COMPARISON: XY CHEST PORTABLE on DOS: 07/29/25, XY CHEST XRAY 1 VIEW on DOS: 06/14/25, XY CHEST XRAY 1 VIEW on DOS: 01/01/25, XY CHEST TWO VIEWS ROUTINE on DOS: 09/03/24 FINDINGS: Lungs and pleural spaces are clear. Cardiac silhouette and beatrice are within normal limits. Bones and soft tissues demonstrate no significant abnormality apart from a small hiatal hernia. IMPRESSION: No acute disease.
[2025-10-05] MEDS ORDERED: ALBU108A5 IN (01:04)
[2025-10-05] MEDS ORDERED: PROM1SOL4 PO (01:04)
[2025-10-05] MEDS ORDERED: PRED20TA2 PO (01:04)
[2025-10-05] MEDS ORDERED: AZITTAB PO (01:04)
--- NOTE | 2025-10-05 01:05 | ED.PDOC ---
SOB-HPI HPI Comments 35-year-old female complaining of shortness of breath. States she has been having shortness of breath and trouble breathing for last eight days. States eight days ago she had an incident where she choked on phlegm. Since then she has been having wheezing and difficulty with breathing. Patient denies any fever or chills. Nothing makes it better, movement makes it worse. Chief Complaint: Shortness of Breath Time Seen by MD: 00:06 Primary Care Provider: NONE Reviewed notes: Nurses Notes Information Source: Patient Mode of Arrival: Ambulatory Past Medical History PAST MEDICAL HISTORY: Anemia Surgical History: Denies all surgeries INSPECTOR FINISHING History: Denies all INSPECTOR FINISHING Hx Family History Family History: Reviewed,noncontributory to illness Social History Smoker: Non-Smoker Alcohol: Denies ETOH Use Drugs: Denies Drug Use Lives In: Home Constitutional: denies: chills, diaphoresis, fatigue, fever, malaise, sweats, weakness, others EENTM: denies: blurred vision, double vision, ear bleeding, ear discharge, ear drainage, ear pain, ear ringing, eye pain, eye redness, hearing loss, mouth pain, mouth swelling, nasal discharge, nose bleeding, nose congestion, nose pain, photophobia, tearing, throat pain, throat swelling, voice changes, others Respiratory: reports: cough, shortness of breath, wheezing; denies: hemoptysis, orthopnea, SOB at rest, SOB with excertion, stridor, others Cardiovascular: denies: chest pain, dizzy spells, diaphoresis, Dyspnea on exertion, edema, irregular heart beat, left arm pain, lightheadedness, palpitations, PND, syncope, others Gastrointestinal: denies: abdomen distended, abdominal pain, blood streaked bowels, constipated, diarrhea, dysphagia, difficulty swallowing, hematemesis, melena, nausea, poor appetite, poor fluid intake, rectal bleeding, rectal pain, vomiting, others Genitourinary: denies: abnormal vagina bleeding, burning, dyspareunia, dysuria, flank pain, frequency, hematuria, incontinence, pain, , vagina disc harge, urgency, others Neurological: denies: dizziness, fainting, headache, left sided numbness, left sided weakness, numbness, paresthesia, pre-existing deficit, right sided numbness, right sided weakness, seizure, speech problems, tingling, tremors, weakness, others Musculoskeletal: denies: back pain, gout, joint pain, joint swelling, muscle pain, muscle stiffness, neck pain, others Integumetry: denies: bruises, change in color, change in hair/nails, dryness, laceration, lesions, lumps, rash, wounds, others Allergic/Immunocompromised: denies: Difficulty Healing, Frequent Infections, Hives, Itching, others Physical Exam General Appearance: No Apparent Distress, Normal HEENT: Normal ENT Inspection, Pharynx Normal, TMs Normal Neck: Full Range of Motion, Non-Tender, Normal, Normal Inspection Respiratory: Chest Non-Tender, No Accessory Muscle Use, No Respiratory Distress, Rhonchi Cardiovascular: No Edema, No JVD, No Murmur, No Gallop, Normal Peripheral Pulses, Regular Rate/Rhythm Breast Exam: Deferred Gastrointestinal: No Organomegaly, Non Tender, No Pulsatile Mass, Normal Bowel Sounds, Soft Genitalia: Deferred Pelvic: Deferred Rectal: Deferred Extremities: No calf tenderness, Normal capillary refill, Normal inspection, Normal range of motion, Non-tender, No pedal edema Musculoskeletal : Apperance: Normal Neurologic: Alert, supervisor grounds II-XII nml as Tested, No Motor Deficits, Normal Affect, Normal Mood, No Sensory Deficits Cerebellar Function: Normal Reflexes: Normal Skin: Dry, Normal Color, Warm Lymphatic: No Adenopathy Was a procedure done? Was a procedure done?: No Differential Dx Differential Diagnosis: Anxiety, Asthma, Bronchitis, Pneumonia X-Ray, Labs, Meds, VS Vital Signs Date Time Temp Pulse Resp B/P (MAP) Pulse Ox O2 Delivery O2 Flow Rate FiO2 10/05/25 00:48 20 98 Room Air* 0 21 21 10/04/25 23:59 97.3 123 22 114/76 99 97.3 Current Medications Medications (Trade) Dose Ordered Sig/Chelsey Route Start Time Stop Time Status Last Admin Albuterol (Ventolin Medneb) 2.5 mg ONCE ONCE NEB 10/05/25 00:15 10/05/25 00:16 DC 10/05/25 00:48 Ipratropium [place] (Atrovent Medneb) 0.5 mg ONCE ONCE NEB 10/05/25 00:15 10/05/25 00:16 DC 10/05/25 00:48 Methylprednisolone Sodium Succinate (Solu Medrol) 125 mg ONCE ONCE IM 10/05/25 00:15 10/05/25 00:16 DC 10/05/25 00:31 X-Ray, Labs, Meds, VS Comment Imaging was reviewed by this provider, there is no obvious pathological or acute disease process. Pending radiology review Labs were reviewed by this provider, no abnormalities Vital signs reviewed by this provider, clinically stable Time of 1ST Reevaluation: 01:05 Reevaluation 1ST: Improved Patient Education/Counseling: Diagnosis, Treatment, Need For Follow Up (Follow up with PCP next available appointment. Return to the emergency department if symptoms worsen) Family Education/Counseling: Diagnosis SEPSIS Sepsis Screen Date sepsis recognized/suspect: Oct 05, 2025 Time Sepsis recognized/suspect: 2024 Recent Procedure: No On Antibiotic Therapy: No Respiratory Rate >20: Yes Heart Rate >90: Yes Temp<36 C (96.8 F) or >38.3 C: No SBP <90 or MAP <65 mmHG: No New Acute Mental Status Change: No Is the patient on CPAP, BIPAP,: No Physician Orders Chest Xray 1 View (10/05/25 00:12) Vital Signs Date Time Temp Pulse Resp B/P (MAP) Pulse Ox O2 Delivery O2 Flow Rate FiO2 10/05/25 00:48 20 98 Room Air* 0 21 21 10/04/25 23:59 97.3 123 22 114/76 99 97.3 Medications Medications Dose Ordered Sig/Chelsey Route Start Time Stop Time Status Last Admin Dose Admin Albuterol 2.5 mg ONCE ONCE NEB 10/05/25 00:15 10/05/25 00:16 DC 10/05/25 00:48 Ipratropium [place] 0.5 mg ONCE ONCE NEB 10/05/25 00:15 10/05/25 00:16 DC 10/05/25 00:48 Methylprednisolone Sodium Succinate 125 mg ONCE ONCE IM 10/05/25 00:15 10/05/25 00:16 DC 10/05/25 00:31 Departure 1 Departure Time of Disposition: 01:01 Impression: Primary Impression: Upper respiratory infection Qualified Codes: J06.9 - Acute upper respiratory infection, unspecified Disposition: 01 HOME / SELF CARE / HOMELESS Condition: Stable e-Prescriptions Promethazine-Dm (Promethazine Dm 6.25-15 mg/5Ml) 1 Mary Mary 5 ML PO TID PRN, #240 ML Prov: CARITO ORTIZ 10/05/25 Albuterol Sulfate (Albuterol Sulfate Hfa) 108 Mcg/Act Aer 108 MCG IN TID PRN, #1 AER Prov: CARITO ORTIZ 10/05/25 Prednisone (Prednisone) 20 Mg Tab 20 MG PO DAILY for 5 Days, #5 MG Prov: CARITO ORTIZ 10/05/25 Azithromycin (Zithromax Z-Osito) 250 Mg Tab 250 MG PO DAILY for 5 Days, #5 TAB Prov: CARITO ORTIZ 10/05/25 Discharged With: Self Critical Care Note Critical Care Time?: No Stability Stability form required: No Heart Score Heart Score: Heart Score Response (Comments) Value History N/A 0 EKG N/A 0 Age N/A 0 Risk Factors N/A 0 Troponin N/A 0 Total 0 CARITO ORTIZ Oct 05, 2025 01:05
[2025-10-05 01:43] VITALS: BP 112/68; PULSE 108; RESP 21; TEMP 98.8; O2SAT 98
== END 2025-10-05 01:44 | disposition home or self-care (01) ==
LOC: ER 23:47
DX: J06.9 Acute upper respiratory infection, unspecified (principal)
CPT/HCPCS: 71045; 94640; 96372; 99285; J2919